=== PATIENT | female | born 1955 | race Caucasian/White ===

== ENCOUNTER 2021-05-03 13:24 | Emergency (ER) | payer MEDICARE, MEDICAID, SELFPAY ==
[2021-05-03 13:43] VITALS: BP 159/87; PULSE 85; RESP 16; TEMP 37; O2SAT 98
--- NOTE | 2021-05-03 14:04 | ED.SKABFB ---
HPI - Skin/Abscess/Foreign Bdy General Chief complaint: Skin/Abscess/Foreign Body Stated complaint: Hives Time Seen by Provider: 05/03/21 13:52 Source: patient and RN notes reviewed Mode of arrival: ambulatory Limitations: no limitations History of Present Illness HPI narrative: Patient presents today complaining of a 2-day history of a severely pruritic rash that covers her arms, legs, trunk, and now her face. Patient is unsure of the cause of the rash. The only thing different in her life is a new toothpaste and the fact that she has eaten 2 pecan sandies prior to onset of symptoms. She has eaten these cookies in the past, but it had been many years. Denies shortness of breath or difficulty swallowing. Patient has been taking Benadryl, which has been providing some relief. Patient is on dialysis 3 times per week and has history of diabetes. MD complaint: rash Related Data Home Medications Medication Instructions Recorded Confirmed amlodipine [Norvasc] 10 mg PO DAILY 05/03/21 05/03/21 atorvastatin [Lipitor] 20 mg PO HS 05/03/21 05/03/21 carvedilol [Coreg] 6.25 mg PO BID 05/03/21 05/03/21 clopidogrel [Plavix] 75 mg PO DAILY 05/03/21 05/03/21 furosemide [Lasix] 40 mg PO DAILY 05/03/21 05/03/21 insulin aspart U-100 [Novolog unit SUBCUT 05/03/21 Flexpen U-100 Insulin] insulin glargine [Basaglar KwikPen SUBCUT 05/03/21 U-100 Insulin] montelukast [Singulair] 10 mg PO DAILY 05/03/21 05/03/21 Allergies Allergy/AdvReac Type Severity Reaction Status Date / Time No Known Allergies Allergy Verified 05/03/21 13:48 Review of Systems Review of Systems: Narrative: CONSTITUTIONAL: Denies body aches, fever, chills, or sweats. EYES: Denies visual changes, redness, or discharge. ENT: Denies rhinorrhea, congestion, sore throat, or otalgia. CARDIOVASCULAR: Denies chest pain, palpitations, or edema. RESPIRATORY: Denies cough or dyspnea. GASTROINTESTINAL: Denies abdominal pain, nausea, vomiting, or diarrhea. GENITOURINARY: Denies dysuria or hematuria. SKIN: Pruritic rash MUSCULOSKELETAL: Denies back pain, joint pain, or myalgia. NEUROLOGIC: Denies headache, numbness, tingling, or weakness. PSYCH: Denies depression or anxiety. [facility] Past Medical History Medical History (Updated 05/03/21 @ 15:43 by Yamileth Eubanks, ACADEMIC AFFAIRS MANAGER, ) Diabetes Dialysis patient Social History Social History Gender identity (if verbalized by the patient): Female Comments At time of signature, I have reviewed and agree with nursing past medical, surgical, social and family history unless otherwise noted. Please see nursing chart for further information. There is no relevant family history pertinent to the presenting complaint Exam Narrative: Exam Narrative: GENERAL: Well-appearing, well-nourished, and in no acute distress. HEAD: Normocephalic, atraumatic. EYES: EOMI. No redness or drainage. Conjunctivae normal. ENT: Mucous membranes pink and moist. throat normal. Lips normal. NECK: Normal AROM. CHEST: No respiratory distress. EXTREMITIES: Normal range of motion. No edema.Dialysis access to right upper arm. SKIN: Warm, dry. Capillary refill normal. Normal skin turgor. Urticarial rash to back, chest, abdomen, bilateral legs, bilateral arms, and left cheek. Superficial petechiae to the left forearm noted, likely from patient scratching it profusely. Patient left upper eyelid is becoming swollen as well. NEURO: No focal deficits. Alert and oriented x3. Gait steady. PSYCH: Normal affect. No signs of depression or anxiety. Course Vital Signs Vital signs: Vital Signs Temperature 98.6 F 05/03/21 13:43 Pulse Rate 85 05/03/21 13:43 Respiratory Rate 16 05/03/21 13:43 Blood Pressure 159/87 H 05/03/21 13:43 Pulse Oximetry 98 05/03/21 13:43 Temperature 98.6 F 05/03/21 13:43 Pulse Rate 85 05/03/21 13:43 Respiratory Rate 16 05/03/21 13:43 Blood Pressure 159/87 H 05/03/21 13:43 Pulse Oximetry 98
== END 2021-05-03 14:08 | disposition home or self-care (01) ==
PROVIDERS: Emergency Provider Nurse Practitioner; PCP Family Medicine
DX: L50.9 Urticaria, unspecified (principal); E11.22 Type 2 diabetes mellitus with diabetic chronic kidney disease; I12.0 Hypertensive chronic kidney disease with stage 5 chronic kidney disease or end stage renal disease; N18.6 End stage renal disease; Z99.2 Dependence on renal dialysis
CPT/HCPCS: 99213; G0463

== ENCOUNTER 2024-01-30 11:06 | Inpatient (IN) | payer OTHER, SELFPAY ==
[2024-01-30] VITALS (15 sets, daily range): BP systolic 156–196; BP diastolic 55–78; PULSE 68–78; RESP 14–26; TEMP 35.7–36.7; O2SAT 95–100; BMI 28.6
--- NOTE | ~2024-01-30 | XR_ITS ---
XR chest 1V portable DATE: 02/03/2024 12:23 INDICATION: Shortness of breath TECHNIQUE: Portable AP chest on 02/03/2024 at 1218 hours COMPARISON: 01/30/2024 portable AP chest at 2203 hours FINDINGS: There is cardiomegaly. There is pulmonary vascular congestion and redistribution. There are bilateral pulmonary infiltrates which predominate centrally and in the lower lung zones. There are m ild to moderate bilateral pleural effusions. Aortic arch calcification. Diffuse osteopenia. Surgical clips overlie the right axillary area. IMPRESSION: Cardiomegaly, congestive heart failure and pulmonary edema, mild to moderate bilateral pl eural effusions Bilateral patellae central and lower lung zone infiltrates may be due to pulmonary edema, pneumonia a nd/or atelectasis Reviewed, dictated and finalized at location A. IMPRESSION: Cardiomegaly, congestive heart failure and pulmonary edema, mild to moderate bilateral pleural effusions Bilateral patellae central and lower lung zone infiltrates may be due to pulmon mckenna edema, pneumonia and/or atelectasis
--- NOTE | ~2024-01-30 | XR_ITS ---
XR chest 1V portable 02/06/2024 09:16 Indication: Dyspnea Procedure: AP portable chest Comparison: Chest dated 02/03/2024 Findings: Improving bilateral airspace disease. Cardiomegaly. Small pleural effusions. No pneumothora x. Small amount of fluid in the right fissure. Impression: 1: Improving bilateral airspace disease which may represent resolving edema or pneumonia. 2: Small pleural effusions. 3: Moderate cardiomegaly. Reviewed, dictated and finalized at location B. Impression: 1: Improving bilateral airspace disease which may represent resolving edema or pneumonia. 2: Small pleural effusions. 3: Moderate cardiomegaly.
--- NOTE | ~2024-01-30 | CT_ITS ---
EXAMINATION: CT brain wo con DATE: 01/30/2024 12:03 INDICATION: Loss of consciousness. TECHNIQUE: Computed tomography (CT) of the head was performed without intravenous contrast. Sagittal and coronal reconstructions were performed. The mA was adjusted according to patient size. Iterative reconstruction technique was employed. The dose-length product was 908.00 mGy-cm. COMPARISON: None FINDINGS: Focal region of encephalomalacia consistent with chronic infarct centered at the left basal ganglia i nvolving the lentiform nucleus, the anterior limb of the internal capsule, caudate nucleus and extend ing into the left frontal lobe najera radiata. No acute intracranial hemorrhage, acute infarction or abnormal extra axial fluid collection. Additional mild scattered white matter hypoattenuation consist ent with chronic small vessel ischemic disease. Mild ex vacuo dilation of the body of the left latera l ventricle. Ventricles are otherwise normal and symmetric. No mass/mass effect. Changes of bilateral intraocular lens replacement. The orbits and mastoid air cells are normal. Mild mucosal thickening t he right maxillary sinus. Intracranial calcified cerebral atherosclerosis is noted. IMPRESSION: 1. Encephalomalacia consistent with chronic infarct centered at the left basal ganglia. No acute intr acranial process. 2. Mild scattered white matter hypoattenuation consistent with chronic small vessel ischemic disease. Reviewed, dictated and finalized at location A. IMPRESSION: 1. Encephalomalacia consistent with chronic infarct centered at the left basal ganglia. No acute intracranial process. 2. Mild scattered white matter hypoattenuation consistent with chronic small ve ssel ischemic disease.
--- NOTE | ~2024-01-30 | CT_ITS ---
EXAMINATION: CT abdomen pelvis wo con DATE: 01/31/2024 13:48 INDICATION: Elevated creatinine. Kidney stone. TECHNIQUE: Computed tomography (CT) of the abdomen and pelvis was performed without intravenous contr ast. Automated exposure control and iterative reconstruction technique were employed. The dose-length product was 527.62 mGy-cm. COMPARISON: None. FINDINGS: The visualized portions of the lung bases demonstrate atelectasis with a dependent predomin ance. There are moderate-sized pleural effusions. Cardiomegaly is noted. There is a moderate-sized pe ricardial effusion. There are coronary artery calcifications. There is periportal edema in the liver. There is a gallstone in the gallbladder, which is normal in size. The spleen is normal. There are wi despread arterial calcifications. The pancreas and adrenal glands are normal. There is mild atrophy o f the kidneys. There are bilateral tubal ligation clips. There are no dilated loops of bowel. The sancho endix is not visualized. There are no pathologically enlarged lymph nodes. There is no free intraperi toneal fluid. Body wall edema is noted. There is severe thoracic and lumbar spondylosis. There is mil d chronic anterior wedging of multiple thoracic vertebral bodies. IMPRESSION: 1. Moderate-sized pleural effusions. 2. Moderate-sized pericardial effusion. Reviewed, dictated and finalized at location A.
--- NOTE | ~2024-01-30 | XR_ITS ---
EXAMINATION: XR chest 1V portable INDICATION: Cough and hypoxia TECHNIQUE: Portable AP chest at 2003 hours COMPARISON: None available FINDINGS: There are diffuse opacities throughout all lung zones. There are small pleural effusions. C ardiomegaly is noted. There are surgical clips of the right axilla. There is no pneumothorax. IMPRESSION: 1. Diffuse lung disease, consistent with pneumonia/or pulmonary edema. 2. Cardiomegaly. 3. Small pleural effusions. Reviewed, dictated and finalized at location F.
--- NOTE | ~2024-01-30 | US_ITS ---
EXAMINATION: US carotid duplex BI DATE: 01/30/2024 19:10 INDICATION: Transient alteration of awareness TECHNIQUE: Grayscale, color Doppler, and pulsed Doppler images of the cervical carotid arteries were obtained. The degree of vessel stenosis is placed in one of the following categories: normal, <50%, 5 0-69%, >=70% but less than near-occlusion, near-occlusion, or total occlusion. Note that percent sten osis relative to normal distal artery lumen diameter is indirectly measured from velocity measurement s as described by Babak, et al. Radiology 2003; 229:340-346. COMPARISON: None. FINDINGS: RIGHT: The right common carotid artery (CCA) peak systolic velocity (PSV) is 75 cm/s. The right internal car otid artery (ICA) PSV is 132 cm/s. The right ICA end-diastolic velocity (EDV) is 7.5 cm/s. The right ICA/CCA PSV ratio is 1.8. Grayscale and color Doppler images yield an estimate of less than 50% diame ter reduction from plaque in the ICA. The external carotid artery (ECA) PSV is 74 cm/s. There is ante grade flow in the right vertebral artery. LEFT: The left CCA PSV is 63 cm/s. The left ICA PSV is 67 cm/s. The left ICA EDV is 6.9 cm/s. The left ICA/ CCA PSV ratio is 1.1. Grayscale and color Doppler images yield an estimate of less than 50% diameter reduction from plaque in the ICA. The ECA PSV is 45 cm/s. There is antegrade flow in the left vertebr al artery. IMPRESSION: 1. 50-69% stenosis in the right internal carotid artery. 2. <50% stenosis in the left internal carotid artery. Reviewed, dictated and finalized at location F.
--- NOTE | 2024-01-30 11:11 | ECG_ITS ---
Measurements Intervals [place] Rate: 72 P: 123 PA: 222 QRS: 99 QRSD: 117 T: 159 QT: 437 QTc: 480 Interpretive Statements SINUS RHYTHM WITH FIRST DEGREE AV BLOCK CONSIDER LIMB LEAD REVERSAL INTRAVENTRICULAR CONDUCTION DELAY LOW QRS VOLTAGE IN LIMB LEADS BORDERLINE R WAVE PROGRESSION, ANTERIOR LEADS BORDERLINE ST-T WAVE ABNORMALITY- ANT/INF LEADS BASELINE WANDER- II, III, AVF BORDERLINE ECG NO PREVIOUS ECG AVAILABLE FOR COMPARISON Electronically Signed On 01-30-2024 11:14:55 CDT by Frantz Luo D.O.
[2024-01-30 11:43] LABS: Add Urine Microscopic? YES; Appearance Urine Cloudy (Clear); Color Urine Yellow (Yellow)
[2024-01-30 11:44] LABS: Bilirubin Urine Negative (Negative); Blood Urine 2+ (Negative); Glucose Urine UA Negative (Negative); Ketones Urine Negative (Negative); Leukocyte Esterase Ur 3+ LEU/UL (Negative); Nitrate Urine Negative (Negative); Protein Urine 3+ mg/dL (Negative); Specific Grav Ur 1.015 (1.001-1.035); Urobilinogen Urine 0.2 mg/dL (<2.0); pH Urine 8.5 (5.0-9.0)
[2024-01-30 11:48] LABS: Alveolar/Arterial O2 Gradient 57.4 mmHg; Base Excess ABG 2.8 mEq/l (+/-2.0); Fractional Inspired Oxygen 26 %; HCO3 ABG 27.1 mEq/l (22.0-26.0); Oxygen Content ABG 15.8 %vol (16.0-22.0); Oxygen Saturation ABG 96.2 % (95.0-100.0); PCO2 ABG 40.4 mmHg (35.0-45.0); PO2 ABG 80.1 mmHg (80.0-100.0); PO2 FiO2 Ratio Arterial Blood 3.08 %; Total Hemoglobin 11.9 g/dL (12.0-18.0); pH ABG 7.444 (7.350-7.450)
[2024-01-30 11:50] LABS: Bacteria Urine 4+ /hpf; Need Manual Microscopic Reviewed; Non Pathogenic Casts 0-2; RBC Urine 21-50 /hpf (0-2); Squamous Epithelial Cell Urine Few /hpf (Few); WBC Urine >100 /hpf (0-3)
[2024-01-30 11:51] LABS: Device NASAL CANNULA; Modified Allen's Test Pass; Site Drawn LEFT RADIAL
[2024-01-30 11:52] LABS: Liters per Minute 1.5 LPM
[2024-01-30 12:00] LABS: Basophils Absolute Auto 0.1 K/mm3 (0.0-0.1); Basophils Percent Auto 0.8 % (0.2-1.2); Eosinophils Absolute Auto 0.4 K/mm3 (0-0.3); Eosinophils Percent Auto 3.3 % (0-4.4); Hematocrit 33.3 % (37.0-47.0); Hemoglobin 10.8 g/dL (12.0-15.0); Immature Granulocyte Absolute 0.04 K/mm3 (0.00-0.031); Immature Granulocyte Percent A 0.4 % (0-0.5); Lymphocytes Absolute Auto 1.45 K/mm3 (0.9-3.2); Lymphocytes Percent Auto 13.2 % (18.3-44.2); Mean Corpuscular HGB Conc 32.4 g/dl (32-36); Mean Corpuscular Hemoglobin 27.5 pg (26-34); Mean Corpuscular Volume 84.7 fl (80-100); Mean Platelet Volume 10.1 fl (7.4-10.4); Monocytes Absolute Auto 0.7 K/mm3 (0.1-0.6); Monocytes Percent Auto 6.5 % (2.6-8.5); Neutrophils Absolute Auto 8.4 K/mm3 (1.3-6.7); Neutrophils Percent Auto 75.8 % (45.5-73.1); Platelet Count Result 163 k/mm3 (150-375); Red Blood Count 3.93 M/mm3 (4.2-5.4); Red Cell Distribution Width 19.8 % (11.5-14.5)
[2024-01-30 12:09] LABS: INR 1.1; Prothrombin Time 14.3 Seconds (11.1-14.7)
[2024-01-30 12:10] LABS: Partial Thromboplastin Time 30.3 Seconds (22.3-36.8)
[2024-01-30 12:11] LABS: Alanine Aminotransferase 12 U/L (6-35); Albumin Level 3.8 g/dL (3.5-5.1); Alkaline Phosphatase 107 U/L (38-126); Anion Gap 4 mmol/L (4-12); Aspartate Amino Transferase 23 U/L (14-36); Bilirubin,Total 1.2 mg/dL (0.2-1.3); Blood Urea Nitrogen 12 mg/dL (7-17); Calcium 9.9 mg/dL (8.4-10.2); Carbon Dioxide 31 mmol/L (22-30); Chloride 99 mmol/L (98-107); Estimated CRCL calculation 11 ml/min; Estimated Glomerular Filt Rate 9; Glucose 183 mg/dL (65-110); Potassium 3.8 mmol/L (3.4-5.0); Sodium 134 mmol/L (137-145)
--- NOTE | 2024-01-30 12:27 | PC.NURSE ---
Pt contacts called per request from physician, no answer, LVM with both contacts
--- NOTE | 2024-01-30 13:36 | PM.IMHP ---
H&P: HPI History of Present Illness Date/Time: 01/30/24 14:00 Chief Complaint: Dizziness, nausea, syncope. Narrative: This is a pleasant 68-year-old female with history of stroke, end-stage renal disease on hemodialysis, hypertension, hyperlipidemia, and insulin-dependent diabetes who presented to the emergency department via EMS for home for evaluation of dizziness, nausea, and syncope. EMS was summoned via the patient's Life Alert at which time she reported dizziness and nausea. EMS reports that she was alert and oriented x4 on their arrival but became increasingly lethargic en route to the hospital and reportedly had multiple yet brief syncopal episodes during transport. Her pupils were pinpoint but reactive in the administered 2 mg of Narcan without change. She was afebrile on arrival to the ED with stable vitals. Blood pressures have ranged between the 150s to 180s systolic. Labs were significant for WBC count of 11.0, hemoglobin 10.8, sodium 134, potassium 3.8, creatinine 4.60, glucose 183. Urine was positive for 3+ leukocyte esterase, >100 WBC, and 4+ bacteria. Brain CT showed chronic findings without acute intracranial process. She is being admitted in this setting for further workup. At the time my evaluation she is resting comfortably. She urinates once or twice a day and does endorse dysuria. She also reports a productive cough, sweats, and nausea but no vomiting. She denies fever, sore throat, chest and pleuritic pain, sensations of racing heart, hematemesis, diarrhea, melena, and hematochezia. Review of Systems Review of Systems: Twelve systems were reviewed and are negative except for as per HPI. [facility] Past Medical History Medical History (Updated 01/30/24 @ 21:56 by Francia Bates PA-C) Cerebrovascular accident Diabetic retinopathy End-stage renal disease on hemodialysis Patient of Dr. Huntley. Dialysis days MWF. Hyperlipidemia Hypertension Insulin dependent type 2 diabetes mellitus Seasonal allergies Urinary incontinence Surgical History Surgical History (Updated 01/30/24 @ 21:56 by Francia Bates PA-C) History of amputation of toe History of angioplasty History of tubal ligation History of wisdom tooth extraction Family History Family History Father Diabetes mellitus Parkinson disease Social History Social History Social History: Surrogate medical decision maker: Smith Hutchinson, son. Code status: Full code. Smoking status: Never smoker Alcohol intake: never Substance use: never Do You Feel Safe in your Home?: Yes Lack of Transportation: No Lack of Food: Never True Current Housing: I Have Housing Concerned About Future Housing: No Difficulty Paying Gas/Electric Bills: No Difficulty Paying for Meds: No Currently Unemployed: No Education: Decline to Answer Difficulty w/ Childcare or Family Care: No Additional living arrangements comments: Lives alone in an apartment in [place]. Spiritual care concerns: No Meds Home Medications and Allergies Home Medications Medication Instructions Recorded Confirmed Type amlodipine 10 mg tablet (Norvasc) 10 mg PO DAILY 05/03/21 01/30/24 History atorvastatin 20 mg tablet (Lipitor) 20 mg PO HS 05/03/21 01/30/24 History clopidogrel 75 mg tablet (Plavix) 75 mg PO DAILY 05/03/21 01/30/24 History insulin aspart U-100 100 unit/mL unit subcut 05/03/21 History (3 mL) subcutaneous pen (Novolog FlexPen U-100 Insulin aspart) insulin glargine 100 unit/mL (3 subcut 05/03/21 History mL) subcutaneous pen (Basaglar KwikPen U-100 Insulin) montelukast 10 mg tablet 10 mg PO DAILY 05/03/21 01/30/24 History (Singulair) carvedilol 25 mg tablet 25 mg PO BID 01/30/24 01/30/24 History linagliptin 5 mg tablet (Tradjenta) 5 mg PO DAILY 01/30/24 01/30/24 History losartan 100 mg tablet 100 mg PO GRACIA
--- NOTE | 2024-01-30 14:53 | ED.AMS ---
HPI - Altered Mental Status General Chief Complaint: Altered Mental Status Stated Complaint: AMS Time Seen by Provider: 01/30/24 11:20 Source: EMS Mode of arrival: EMS Limitations: altered mental status History of Present Illness HPI narrative: 68-year-old with a history of a hypertension, ESRD on hemodialysis Monday was brought in from home with altered mental status. Patient was found to be tender at home. She was given IV Narcan on route to the hospital with no significant change. MD complaint: altered mental status Severity: severe Related Data Home Medications Medication Instructions Recorded Confirmed amlodipine 10 mg tablet (Norvasc) 10 mg PO DAILY 05/03/21 05/03/21 atorvastatin 20 mg tablet (Lipitor) 20 mg PO HS 05/03/21 05/03/21 clopidogrel 75 mg tablet (Plavix) 75 mg PO DAILY 05/03/21 05/03/21 insulin aspart U-100 100 unit/mL unit subcut 05/03/21 (3 mL) subcutaneous pen (Novolog FlexPen U-100 Insulin aspart) insulin glargine 100 unit/mL (3 subcut 05/03/21 mL) subcutaneous pen (Basaglar KwikPen U-100 Insulin) montelukast 10 mg tablet 10 mg PO DAILY 05/03/21 05/03/21 (Singulair) carvedilol 25 mg tablet 25 mg BID 01/30/24 doxycycline monohydrate 100 mg 100 mg 01/30/24 capsule linagliptin 5 mg tablet (Tradjenta) 5 mg 01/30/24 losartan 100 mg tablet 100 mg 01/30/24 01/30/24 nifedipine 90 mg tablet,extended 90 mg PO 01/30/24 release 24 hr Allergies Allergy/AdvReac Type Severity Reaction Status Date / Time No Known Allergies Allergy Verified 01/31/23 15:46 Review of Systems Review of Systems: ROS unobtainable: Yes unobtainable due to medical condition PMFSH Past Medical History Medical History (Updated 01/30/24 @ 14:54 by Gaurav Hunt MD) Cerebrovascular accident End-stage renal disease on hemodialysis Patient of Dr. Huntley. Dialysis days MWF. Hyperlipidemia Hypertension Insulin dependent type 2 diabetes mellitus Seasonal allergies Urinary incontinence Surgical History Surgical History History of angioplasty History of tubal ligation History of wisdom tooth extraction Family History Family History Father Diabetes mellitus Social History Social History Social History: Surrogate medical decision maker: Smith Hutchinson, he. Code status: Full code. Smoking status: Never smoker Alcohol intake: never Substance use: never Lack of Transportation: YES Lack of Food: Never True Current Housing: I Have Housing Concerned About Future Housing: No Difficulty Paying Gas/Electric Bills: No Difficulty Paying for Meds: No Currently Unemployed: No Education: High School Diploma/GED Additional living arrangements comments: Lives alone in an apartment in [place]. Exam Narrative: GENERAL: Obtunded , well-nourished, and in no acute distress. HEAD: Normocephalic, atraumatic. EYES: PERRLA and EOMI. ENT: Nares clear, no rhinorrhea or epistaxis. Mucous membranes moist. drooling NECK: Supple. CHEST: Clear to auscultation. No respiratory distress. HEART: Regular rate and rhythm. No murmur heard. Normal peripheral pulses. ABDOMEN: Soft, nontender, nondistended, normal active bowel sounds. EXTREMITIES: Normal range of motion. No edema. SKIN: Warm, dry, no rash. NEURO: No focal deficits. semi responsive wakes up with sternal rub . Course Course Emergency Course: Patient upon arrival to the ER was semi-responsive opens eyes with deep sternal rib her workup was essentially negative. She is not on any narcotics. I did discuss with her son Smith was out of state she has no underlying history of dementia. She states by herself with the help of her caregiver. Discussed with hospitalist will admit Reevaluation(s) Reevaluation #1: Patient is now alert he has
--- NOTE | 2024-01-30 15:33 | PC.NURSE ---
Meal ordered for patient
[2024-01-30 16:45] LABS: Glucose Point of Care 198 mg/dl (65-105)
--- NOTE | 2024-01-30 16:48 | PC.NURSE ---
This patient, Lesly Hutchinson, was admitted to [facility] Surg Room 321-01 at 16:24. Patient/family oriented to hospital policies and general routines including ID bracelet, bed and alarms, visiting hours, pain management, procedures, bathroom and other care routines, personal items, smoking policy, room service/diet, and visiting hours. Information on how to activate the Rapid Response Team has been discussed. Patient/Family are encouraged to report perceived risks to care and to ask questions if they do not understand what they are told or what they should do.
[2024-01-30] MEDS: HEPARIN SODIUM 5,000 UNITS/ML VIAL 5000 UNITS SUB-Q (20:52)
[2024-01-30 21:03] LABS: Glucose Point of Care 167 mg/dl (65-105)
--- NOTE | 2024-01-30 23:45 | ECG_ITS ---
Measurements Intervals [place] Rate: 76 P: 63 MA: 227 QRS: 128 QRSD: 113 T: 43 QT: 416 QTc: 469 Interpretive Statements SINUS RHYTHM WITH FIRST DEGREE AV BLOCK VENTRICULAR PREMATURE COMPLEXES RIGHT AXIS DEVIATION INTRAVENTRICULAR CONDUCTION DELAY PATTERN CONSISTENT WITH PULMONARY DISEASE BORDERLINE T WAVE ABNORMALITY- ANT/INF LEADS BASELINE WANDER- I, II, AVF, V1, V4-V6 BORDERLINE ECG COMPARED TO ECG 01/30/2024 11:12:36 NO SIGNIFICANT CHANGES Electronically Signed On 01-31-2024 6:39:01 CDT by Frantz Luo D.O.
[2024-01-30 23:55] LABS: Glucose Point of Care 159 mg/dl (65-105)
[2024-01-31] VITALS (25 sets, daily range): BP systolic 136–184; BP diastolic 52–87; PULSE 62–77; RESP 14–20; TEMP 36.1–37.1; O2SAT 93–95
[2024-01-31 03:59] LABS: Troponin I 0.026 ng/mL (0.000-0.034)
[2024-01-31 07:30] LABS: Basophils Absolute Auto 0.1 K/mm3 (0.0-0.1); Basophils Percent Auto 1.1 % (0.2-1.2); Eosinophils Absolute Auto 0.2 K/mm3 (0-0.3); Eosinophils Percent Auto 3.4 % (0-4.4); Hemoglobin 10.6 g/dL (12.0-15.0); Immature Granulocyte Absolute 0.02 K/mm3 (0.00-0.031); Immature Granulocyte Percent A 0.3 % (0-0.5); Lymphocytes Absolute Auto 1.32 K/mm3 (0.9-3.2); Lymphocytes Percent Auto 20.5 % (18.3-44.2); Mean Corpuscular HGB Conc 32.1 g/dl (32-36); Mean Corpuscular Hemoglobin 27.5 pg (26-34); Mean Corpuscular Volume 85.5 fl (80-100); Mean Platelet Volume 10.2 fl (7.4-10.4); Monocytes Absolute Auto 0.5 K/mm3 (0.1-0.6); Monocytes Percent Auto 8.4 % (2.6-8.5); Neutrophils Absolute Auto 4.3 K/mm3 (1.3-6.7); Neutrophils Percent Auto 66.3 % (45.5-73.1); Platelet Count Result 162 k/mm3 (150-375); Red Blood Count 3.86 M/mm3 (4.2-5.4); Red Cell Distribution Width 19.9 % (11.5-14.5); White Blood Count 6.5 K/mm3 (4.5-10.0)
[2024-01-31 07:45] LABS: Alanine Aminotransferase 13 U/L (6-35); Albumin Level 3.7 g/dL (3.5-5.1); Alkaline Phosphatase 93 U/L (38-126); Anion Gap 5 mmol/L (4-12); Aspartate Amino Transferase 22 U/L (14-36); Blood Urea Nitrogen 16 mg/dL (7-17); Calcium 10.1 mg/dL (8.4-10.2); Carbon Dioxide 30 mmol/L (22-30); Chloride 99 mmol/L (98-107); Estimated CRCL calculation 10 ml/min; Estimated Glomerular Filt Rate 8; Glucose 117 mg/dL (65-110); Magnesium 1.9 mg/dL (1.6-2.3); Phosphorus 3.3 mg/dL (2.5-4.5); Potassium 3.8 mmol/L (3.4-5.0); Sodium 134 mmol/L (137-145)
[2024-01-31 07:52] LABS: Troponin I 0.028 ng/mL (0.000-0.034)
[2024-01-31 08:05] LABS: Glucose Point of Care 111 mg/dl (65-105)
[2024-01-31 08:34] LABS: Hepatitis B Surface Antigen Negative (Negative)
[2024-01-31] MEDS: SODIUM CHLORIDE 0.9% IV 1,000 ML 999 ML IV CONT (08:51)
[2024-01-31] MEDS: HEPARIN SODIUM 1,000 UNITS/ML VIAL 5000 UNITS (08:51)
[2024-01-31 09:13] LABS: Hepatitis B Surface Anti Res Indeterminate
--- NOTE | 2024-01-31 09:22 | P.PNIM_ITS ---
Progress Note: A&P Assessment and Plan (1) Syncope: Code(s): R55 - Syncope and collapse Status: Acute Assessment and Plan: 01/31/2024: * EMS report presyncopal episodes in route to the hospital * Patient was given 2 mg of Narcan without any change EN route * Head CT was negative for any acute intracranial process, showed age-related changes, shown encephalomalacia consistent with chronic infarct centered at th e left basal ganglia * Carotid Dopplers showed 50-69% stenosis in the right internal carotid artery less than 50% stenosis in the left internal carotid artery. * Continue orthostatic blood pressures Q shift * Continue cardiac monitoring * Will obtain an echocardiogram today (2) Urinary tract infection: Code(s): N39.0 - Urinary tract infection, site not specified Status: Acute Assessment and Plan: 01/31/2024: * UA showing 3+ urine protein, 2+ urine blood, 3+ leukocytes 21-50, urine RBCs, greater than 100 urine WBCs, 4+ urine bacteria * Urine culture obtained and pending * Blood cultures ordered * Continue Rocephin * Patient has history incontinence (3) End-stage renal disease on hemodialysis: Code(s): N18.6 - End stage renal disease; Z99.2 - Dependence on renal dialysis Status: Acute Assessment and Plan: 01/31/2024: * Creatinine 5.20 this morning * Nephrology consulted for HD * HD today (4) Insulin dependent type 2 diabetes mellitus: Code(s): E11.9 - Type 2 diabetes mellitus without complications; Z79.4 - half-way (current) use of insulin Status: Chronic Assessment and Plan: 01/31/2024: * Blood sugars ranging 111-117 * Will obtain a hemoglobin A1c * Accu-Cheks AC and HS * Hypoglycemic in place * Moderate dose sliding scale insulin ordered * Will hold linagliptin (5) Hypertension: Code(s): I10 - Essential (primary) hypertension Status: Chronic Assessment and Plan: 01/31/2024: * Blood pressure ranging 160/80-192/70 * Continue amlodipine and losartan (6) Hyperlipidemia: Code(s): E78.5 - Hyperlipidemia, unspecified Status: Chronic Assessment and Plan: 01/31/2024: * Continue atorvastatin and Plavix Time Spent With Patient Time with patient: Greater than 35 minutes Subjective Date/time seen: 01/31/24 09:22 Interval history: This is a 68 year female significant past medical history of CVA, diabetic retinopathy end-stage renal disease on hemodialysis, hyperlipidemia, hypertension, type 2 diabetes who presented to the [facility] with complaints of dizziness, nausea, syncope. Workup in the hospital included head CT which was negative for any acute intracranial process, showed age-related changes, encephalomalacia consistent with chronic infarct centered at the left basal ganglia. Carotid doppler study revealed 50-69% stenosis in the right internal carotid artery, and less than 50% stenosis in the left internal carotid artery. Chest x-ray showing diffuse lung disease consistent with pneumonia and/or pulmonary edema small pleural effusions. EKG showing sinus rhythm with first- degree AV block, right axis deviation, with a rate of 76, QTC 469. Initial labs show a white blood cell count of 11.0 hemoglobin 10.8, sodium 134, creatinine 4.6, EGFR 9, liver enzymes are normal. UA was obtained showing 3+ urine protein, 2+ urine blood, 3+ leukocytes, greater than 100 urine wbc's, 21-50 urine RBCs +bacteria. Urine culture was obtained and is pending. Patient given IVF and Rocephin the ER. Nephrology was consulted. Examination today patient is alert and oriented x3, lying in the be
--- NOTE | 2024-01-31 09:22 | PM.IMPN ---
Progress Note: A&P Assessment and Plan (1) Syncope: Code(s): R55 - Syncope and collapse Status: Acute Assessment and Plan: 01/31/2024: EMS report presyncopal episodes in route to the hospital Patient was given 2 mg of Narcan without any change EN route Head CT was negative for any acute intracranial process, showed age-related changes, shown encephalomalacia consistent with 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 Continue orthostatic blood pressures Q shift Continue cardiac monitoring Will obtain an echocardiogram today (2) Urinary tract infection: Code(s): N39.0 - Urinary tract infection, site not specified Status: Acute Assessment and Plan: 01/31/2024: UA showing 3+ urine protein, 2+ urine blood, 3+ leukocytes 21-50, urine RBCs, greater than 100 urine WBCs, 4+ urine bacteria Urine culture obtained and pending Blood cultures ordered Continue Rocephin Patient has history incontinence (3) End-stage renal disease on hemodialysis: Code(s): N18.6 - End stage renal disease; Z99.2 - Dependence on renal dialysis Status: Acute Assessment and Plan: 01/31/2024: Creatinine 5.20 this morning Nephrology consulted for HD HD today (4) Insulin dependent type 2 diabetes mellitus: Code(s): E11.9 - Type 2 diabetes mellitus without complications; Z79.4 - [facility] (current) use of insulin Status: Chronic Assessment and Plan: 01/31/2024: Blood sugars ranging 111-117 Will obtain a hemoglobin A1c Accu-Cheks AC and HS Hypoglycemic in place Moderate dose sliding scale insulin ordered Will hold linagliptin (5) Hypertension: Code(s): I10 - Essential (primary) hypertension Status: Chronic Assessment and Plan: 01/31/2024: Blood pressure ranging 160/80-192/70 Continue amlodipine and losartan (6) Hyperlipidemia: Code(s): E78.5 - Hyperlipidemia, unspecified Status: Chronic Assessment and Plan: 01/31/2024: Continue atorvastatin and Plavix Time Spent With Patient Time with patient: Greater than 35 minutes Subjective Date/time seen: 01/31/24 09:22 Interval history: This is a 68 year female significant past medical history of CVA, diabetic retinopathy end-stage renal disease on hemodialysis, hyperlipidemia, hypertension, type 2 diabetes who presented to the [facility] with complaints of dizziness, nausea, syncope. Workup in the hospital included head CT which was negative for any acute intracranial process, showed age-related changes, encephalomalacia consistent with chronic infarct centered at the left basal ganglia. Carotid doppler study revealed 50-69% stenosis in the right internal carotid artery, and less than 50% stenosis in the left internal carotid artery. Chest x-ray showing diffuse lung disease consistent with pneumonia and/or pulmonary edema small pleural effusions. EKG showing sinus rhythm with first-degree AV block, right axis deviation, with a rate of 76, QTC 469. Initial labs show a white blood cell count of 11.0 hemoglobin 10.8, sodium 134, creatinine 4.6, EGFR 9, liver enzymes are normal. UA was obtained showing 3+ urine protein, 2+ urine blood, 3+ leukocytes, greater than 100 urine wbc's, 21-50 urine RBCs +bacteria. Urine culture was obtained and is pending. Patient given IVF and Rocephin the ER. Nephrology was consulted. Examination today patient is alert and oriented x3, lying in the bed. She denies any fever, chills, nausea, vomiting, diarrhea, abdominal pain, chest pain, or shortness of breath. Labs today reveal normal white blood cell count 6.5, hemoglobin 10.6, sodium 134, creatinine increased 2.2, liver enzymes are normal, x2 remain flat TSH 1.3 hepatitis B negative. She had HD today. She reported dizziness and lightheadedness right after her HD was finished,
--- NOTE | 2024-01-31 12:10 | PM.CNNEP ---
Assessment and Plan Assessment and plan (1) End stage renal disease: Code(s): N18.6 - End stage renal disease Status: Chronic Assessment and Plan: HD today continue M/W/F dialysis schedule while hospitalized follow electrolytes, volume status, and clearance (2) Syncope: Code(s): R55 - Syncope and collapse Status: Acute Assessment and Plan: as noted by EMS report in route to the hospital evaluation to date noted: Head CT was negative for any acute intracranial process carotid dopplers showed 50-69% stenosis in the right internal carotid artery less than 50% stenosis in the left internal carotid artery. follow orthostatics telemetry monitoring check Echo is not done recently (3) Altered mental status: Qualifiers: Altered mental status type: unspecified Qualified Code(s): R41.82 - Altered mental status, unspecified Code(s): R41.82 - Altered mental status, unspecified Status: Acute Assessment and Plan: appears resolved at this time presumably secondary to #2 and #3 follow mentation (4) Acute UTI: Code(s): N39.0 - Urinary tract infection, site not specified Status: Acute Assessment and Plan: suggestive by admission UA follow culture results on antibiotics (5) Hypertension: Code(s): I10 - Essential (primary) hypertension Status: Chronic Assessment and Plan: elevated on admission doing better at this time follow trend of hemodynamics (6) Anemia: Code(s): D64.9 - Anemia, unspecified Status: Acute Assessment and Plan: due to ESRD H/H at goal Epogen with HD follow trend of H/H (7) Insulin dependent type 2 diabetes mellitus: Code(s): E11.9 - Type 2 diabetes mellitus without complications; Z79.4 - [facility] ([facility] use of [facility] Status: Chronic Assessment and Plan: follow accu-cheks glycemic control per hospitalists I will continue follow patient with you while she remains hospitalized and make further recommendations as deemed necessary. Thank you for allowing me to participate in the care of this patient. History of Present Illness Reason for Consult Consult date: 01/31/24 Reason for consult: end stage renal disease Chief Complaint Chief complaint: altered mental status History of Present Illness Narrative: The patient is a 68-year-old female with a past medical history as outlined below who presented to [facility] Emergency room for further evaluation of altered mental status and syncope. EMS was summoned to the patient's home via the patient's Life Alert due to complaints of nausea and dizziness. Per EMS report, on their arrival the patient was alert oriented x4 but she slowly and increasingly became lethargic in route to the hospital. Reportedly, she had multiple but brief syncopal episodes during the transport. Her pupils were apparently pinpoint during some of these episodes but were reactive but she was given Narcan without any significant change or improvement. By the time of her arrival to the emergency room, she was hemodynamically stable without any evidence of hypotension as her blood pressure was running in the 150-180 systolic range. Routine blood test demonstrated a mildly elevated white blood cell count with noted anemia likely related to her ESRD status with a chemistry that also was significant for her known history dialysis dependence. Her urinalysis was highly suggestive of urinary tract infection with 3+ leukocyte esterase, greater than 100 white blood cells, and 4+ bacteria. A CT scan of the brain demonstrated chronic findings without any acute intracranial process. Her mentation seemed to improve while she was in the emergency room as well. Given her constellation of symptoms as well as her laboratory findings, she was admitted the hospital for further evaluation and therapy. Since her admis
--- NOTE | 2024-01-31 12:10 | P.CONNP_ITS ---
Assessment and Plan Assessment and plan (1) End stage renal disease: Code(s): N18.6 - End stage renal disease Status: Chronic Assessment and Plan: * HD today * continue M/W/F dialysis schedule while hospitalized * follow electrolytes, volume status, and clearance (2) Syncope: Code(s): R55 - Syncope and collapse Status: Acute Assessment and Plan: * as noted by EMS report in route to the hospital * evaluation to date noted: * Head CT was negative for any acute intracranial process * carotid dopplers showed 50-69% stenosis in the right internal carotid artery less than 50% stenosis in the left internal carotid artery. * follow orthostatics * telemetry monitoring * check Echo is not done recently (3) Altered mental status: Qualifiers: Altered mental status type: unspecified Qualified Code(s): R41.82 - Altered mental status, unspecified Code(s): R41.82 - Altered mental status, unspecified Status: Acute Assessment and Plan: * appears resolved at this time * presumably secondary to #2 and #3 * follow mentation (4) Acute UTI: Code(s): N39.0 - Urinary tract infection, site not specified Status: Acute Assessment and Plan: * suggestive by admission UA * follow culture results * on antibiotics (5) Hypertension: Code(s): I10 - Essential (primary) hypertension Status: Chronic Assessment and Plan: * elevated on admission * doing better at this time * follow trend of hemodynamics (6) Anemia: Code(s): D64.9 - Anemia, unspecified Status: Acute Assessment and Plan: * due to ESRD * H/H at goal * Epogen with HD * follow trend of H/H (7) Insulin dependent type 2 diabetes mellitus: Code(s): E11.9 - Type 2 diabetes mellitus without complications; Z79.4 - [facility] (current) use of insulin Status: Chronic Assessment and Plan: * follow accu-cheks * glycemic control per hospitalists I will continue follow patient with you while she remains hospitalized and make further recommendations as deemed necessary. Thank you for allowing me to participate in the care of this patient. History of Present Illness Reason for Consult Consult date: 01/31/24 Reason for consult: end stage renal disease Chief Complaint Chief complaint: altered mental status History of Present Illness Narrative: The patient is a 68-year-old female with a past medical history as outlined below who presented to [facility] Emergency room for further evaluation of altered mental status and syncope. EMS was summoned to the patient's home via the patient's Life Alert due to complaints of nausea and dizziness. Per EMS report, on their arrival the patient was alert oriented x4 but she slowly and increasingly became lethargic in route to the hospital. Reportedly, she had multiple but brief syncopal episodes during the transport. Her pupils were apparently pinpoint during some of these episodes but were reactive but she was given Narcan without any significant change or improvement. By the time of her arrival to the emergency room, she was hemodynamically stable without any evidence of hypotension as her blood pressure was running in the 150-180 systolic range. Routine blood test demonstrated a mildly elevated white blood cell count with noted anemia likely related to her ESRD status with a chemistry that also was significant for her known history dialysis dependence. Her urinalysis was highly sugg
[2024-01-31] MEDS: EPOETIN ALFA-EPBX 4,000 UNITS/ML VIAL 4000 UNITS IV PUSH (12:34)
[2024-01-31 13:08] LABS: Glucose Point of Care 100 mg/dl (65-105)
[2024-01-31] MEDS: carvediloL 25 MG TABLET PO ×2 (13:15→21:17)
[2024-01-31] MEDS: MONTELUKAST SODIUM 10 MG TABLET PO (13:15)
[2024-01-31] MEDS: CLOPIDOGREL BISULFATE 75 MG TABLET PO (13:15)
[2024-01-31] MEDS: LOSARTAN POTASSIUM 100 MG TABLET PO (13:15)
[2024-01-31] MEDS: amLODIPine BESYLATE 5 MG TABLET 10 MG PO (13:15)
[2024-01-31 16:52] LABS: Glucose Point of Care 137 mg/dl (65-105)
--- NOTE | 2024-01-31 17:02 | ECHO_ITS ---
Patient Info Name: Lesly Hutchinson Age: 68 years : 1955 Gender: Female Ht: 66 in Wt: 177 lbs BSA: 1.95 m2 HR: 78 bpm BP: 184 / 60 mmHg Technical Quality: Fair Exam Date: 01/31/2024 4:05 PM Exam Location: Echo Lab Exam Room: 321 Patient Status: Inpatient Admit Date: 01/31/2024 Staff Ordering Physician: Francia Bates PA-C Patient Portal Concierge: Winnie Sanchez RDCS Attending Provider: Gerard Poole MD Referring Physician: Paulo FINN; Exam Type: CA echo doppler color flow Study Info Indications - syncope Complete two-dimensional, color flow and Doppler transthoracic echocardiogram is performed. Summary 1. Complete two-dimensional, color flow and Doppler transthoracic echocardiogram is performed. 2. Left ventricular chamber dimension is mildly enlarged. 3. Left ventricular systolic function is normal, estimated at 55-60%. 4. There is mild concentric increased left ventricular wall thickness. 5. The left ventricular diastolic function is abnormal. 6. E/e' 25 is significantly elevated. 7. Left atrial chamber dimension is severely enlarged. 8. The mitral valve has moderately calcified annulus. 9. There is mild mitral valve regurgitation. 10. There is mild tricuspid valve regurgitation. 11. Mild pulmonary hypertension, estimated pulmonary arterial systolic pressure is 42 mmHg. 12. There is trace pulmonic regurgitation. 13. There is small circumferential pericardial effusion, most of which is posteriorly located at 1.7 cm. 14. No cardiac tamponade. Left Ventricle E/e' 25 is significantly elevated. Left ventricular chamber dimension is mildly enlarged. Left ventricular systolic function is normal, estimated at 55-60%. There is mild concentric increased left ventricular wall thickness. The left ventricular diastolic function is abnormal. Right Ventricle Right ventricular systolic function is normal and with normal TAPSE 1.7 cm. Right ventricular chamber dimension is normal. Left Atria Left atrial chamber dimension is severely enlarged. Right Atria Right atrial chamber dimension is normal. Aortic Valve The aortic valve is trileaflet. There is no aortic valve stenosis. There is no aortic valve regurgitation. Pulmonic Valve There is trace pulmonic regurgitation. Mitral Valve The mitral valve has moderately calcified annulus. There is no mitral valve stenosis. There is mild mitral valve regurgitation. Tricuspid Valve There is mild tricuspid valve regurgitation. Mild pulmonary hypertension, estimated pulmonary arterial systolic pressure is 42 mmHg. Pericardium/Pleural There is small circumferential pericardial effusion, most of which is posteriorly located at 1.7 cm. No cardiac tamponade. Inferior Vena Cava Normal inferior vena cava with >50% collapse upon inspiration consistent with normal right atrial pressure, 5 mmHg. Aorta The aortic root size at the sinus of Valsalva is normal. Left Ventricular Outflow Tract Name Value Normal LVOT 2D LVOT Diameter 2.0 cm LVOT Doppler LVOT Peak Gradient 8 mmHg LVOT Mean Gradient 5 mmHg LVOT VTI 35 cm LVOT VTI/AV VTI Ratio
[2024-01-31 18:07] LABS: Glucose Point of Care 165 mg/dl (65-105)
[2024-01-31 20:15] LABS: Glucose Point of Care 140 mg/dl (65-105)
[2024-01-31] MEDS: ATORVASTATIN 20 MG TABLET PO (21:17)
[2024-01-31] MEDS: HEPARIN SODIUM 5,000 UNITS/ML VIAL 5000 UNITS SUB-Q (21:17)
[2024-02-01] VITALS (13 sets, daily range): BP systolic 140–194; BP diastolic 53–74; PULSE 55–75; RESP 12–22; TEMP 35.9–36.5; O2SAT 92–96
[2024-02-01 00:20] LABS: Glucose Point of Care 132 mg/dl (65-105)
[2024-02-01] MEDS: ONDANSETRON INJ 4 MG/2 ML VIAL IV PUSH (00:46)
[2024-02-01 08:35] LABS: Glucose Point of Care 135 mg/dl (65-105)
[2024-02-01] MEDS: HEPARIN SODIUM 5,000 UNITS/ML VIAL 5000 UNITS SUB-Q ×2 (08:49→20:29)
[2024-02-01] MEDS: MONTELUKAST SODIUM 10 MG TABLET PO (08:50)
[2024-02-01] MEDS: CLOPIDOGREL BISULFATE 75 MG TABLET PO (08:50)
[2024-02-01] MEDS: amLODIPine BESYLATE 5 MG TABLET 10 MG PO (08:50)
[2024-02-01] MEDS: LOSARTAN POTASSIUM 100 MG TABLET PO (08:56)
[2024-02-01] MEDS: carvediloL 25 MG TABLET PO ×2 (08:56→20:29)
--- NOTE | 2024-02-01 09:07 | PM.IMPN ---
Progress Note: A&P Assessment and Plan (1) Anemia: Code(s): D64.9 - Anemia, unspecified Status: Acute (2) End stage renal disease: Code(s): N18.6 - End stage renal disease Status: Chronic (3) Altered mental status: Qualifiers: Altered mental status type: unspecified Qualified Code(s): R41.82 - Altered mental status, unspecified Code(s): R41.82 - Altered mental status, unspecified Status: Acute (4) Acute UTI: Code(s): N39.0 - Urinary tract infection, site not specified Status: Acute (5) Syncope: Code(s): R55 - Syncope and collapse Status: Acute (6) End-stage renal disease on hemodialysis: Code(s): N18.6 - End stage renal disease; Z99.2 - Dependence on renal dialysis Status: Acute (7) Insulin dependent type 2 diabetes mellitus: Code(s): E11.9 - Type 2 diabetes mellitus without complications; Z79.4 - [facility] (current) use of insulin Status: Chronic Plan (1) Syncope: ?Code(s): R55 - Syncope and collapse ?Status:?Acute ?Assessment and Plan: 01/31/2024: EMS report presyncopal episodes in route to the hospital Patient was given 2 mg of Narcan without any change EN route Head CT was negative for any acute intracranial process, showed age-related changes, shown encephalomalacia consistent with 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 Continue orthostatic blood pressures Q shift Continue cardiac monitoring echocardiogram ? 1. Complete two-dimensional, color flow and Doppler transthoracic echocardiogram is performed. ? 2. Left ventricular chamber dimension is mildly enlarged. ? 3. Left ventricular systolic function is normal, estimated at 55-60%. ? 4. There is mild concentric increased left ventricular wall thickness. ? 5. The left ventricular diastolic function is abnormal. ? 6. E/e' 25 is significantly elevated. ? 7. Left atrial chamber dimension is severely enlarged. ? 8. The mitral valve has moderately calcified annulus. ? 9. There is mild mitral valve regurgitation. ? 10. There is mild tricuspid valve regurgitation. ? 11. Mild pulmonary hypertension, estimated pulmonary arterial systolic pressure is 42 mmHg. ? 12. There is trace pulmonic regurgitation. ? 13. There is small circumferential pericardial effusion, most of which is posteriorly located at 1.7 cm. ? 14. No cardiac tamponade. tele monitor: no significant arrhythmia (2) Urinary tract infection: ?Code(s): N39.0 - Urinary tract infection, site not specified ?Status:?Acute ?Assessment and Plan: 01/31/2024: UA showing 3+ urine protein, 2+ urine blood, 3+ leukocytes 21-50, urine RBCs, greater than 100 urine WBCs, 4+ urine bacteria Urine culture obtained and: Klebsiella pneumoniae, stokes sensitivity Blood cultures ordered Continue Rocephin Patient has history incontinence (3) End-stage renal disease on hemodialysis: ?Code(s): N18.6 - End stage renal disease; Z99.2 - Dependence on renal dialysis ?Status:?Acute ?Assessment and Plan: 01/31/2024: Creatinine 5.20 this morning Nephrology consulted for HD HD today (4) Insulin dependent type 2 diabetes mellitus: ?Code(s): E11.9 - Type 2 diabetes mellitus without complications; Z79.4 - [facility] (current) use of insulin ?Status:?Chronic ?Assessment and Plan: 01/31/2024: Blood sugars ranging 111-117 Will obtain a hemoglobin A1c Accu-Cheks AC and HS Hypoglycemic in place Moderate dose sliding scale insulin ordered Will hold linaglipti (5) Hypertension: ?Code(s): I10 - Essential (primary) hypertension ?Status:?Chronic ?Assessment and Plan: 01/31/2024: Blood pressure ranging 160/80-192/70 Continue amlodipine and losartan HD per renal (6) Hyperlipidemia: ?Cod
[2024-02-01 10:28] LABS: Basophils Absolute Auto 0.1 K/mm3 (0.0-0.1); Basophils Percent Auto 1.2 % (0.2-1.2); Eosinophils Absolute Auto 0.2 K/mm3 (0-0.3); Eosinophils Percent Auto 3.5 % (0-4.4); Hematocrit 32.7 % (37.0-47.0); Hemoglobin 10.1 g/dL (12.0-15.0); Immature Granulocyte Absolute 0.02 K/mm3 (0.00-0.031); Immature Granulocyte Percent A 0.3 % (0-0.5); Lymphocytes Absolute Auto 1.12 K/mm3 (0.9-3.2); Lymphocytes Percent Auto 18.8 % (18.3-44.2); Mean Corpuscular HGB Conc 30.9 g/dl (32-36); Mean Corpuscular Hemoglobin 27.2 pg (26-34); Mean Corpuscular Volume 87.9 fl (80-100); Mean Platelet Volume 10.7 fl (7.4-10.4); Monocytes Absolute Auto 0.4 K/mm3 (0.1-0.6); Monocytes Percent Auto 6.9 % (2.6-8.5); Neutrophils Absolute Auto 4.1 K/mm3 (1.3-6.7); Neutrophils Percent Auto 69.3 % (45.5-73.1); Platelet Count Result 180 k/mm3 (150-375); Red Blood Count 3.72 M/mm3 (4.2-5.4); Red Cell Distribution Width 19.8 % (11.5-14.5)
[2024-02-01 10:33] LABS: Anion Gap 5 mmol/L (4-12); Blood Urea Nitrogen 11 mg/dL (7-17); Calcium 9.7 mg/dL (8.4-10.2); Carbon Dioxide 28 mmol/L (22-30); Chloride 102 mmol/L (98-107); Estimated CRCL calculation 14 ml/min; Estimated Glomerular Filt Rate 12; Glucose 145 mg/dL (65-110); Potassium 4.1 mmol/L (3.4-5.0); Sodium 135 mmol/L (137-145)
[2024-02-01 11:44] LABS: Glucose Point of Care 133 mg/dl (65-105)
--- NOTE | 2024-02-01 12:14 | P.PNNP_ITS ---
Progress Note: A&P Assessment and Plan (1) End stage renal disease: Code(s): N18.6 - End stage renal disease Status: Chronic Assessment and Plan: * HD is due tomorrow. * Volume status looks okay. * Her chest x-ray did show pleural effusions and infiltrates before yesterday's dialysis. Today she is looking better. Will remove more fluid tomorrow. * Potassium and bicarbonate are okay * BUN and creatinine look okay (2) Syncope: Code(s): R55 - Syncope and collapse Status: Acute Assessment and Plan: * as noted by EMS report in route to the hospital * evaluation to date noted: * Head CT was negative for any acute intracranial process * carotid dopplers showed 50-69% stenosis in the right internal carotid artery less than 50% stenosis in the left internal carotid artery. * I can not find where she had an orthostatic blood pressure. Will order this * telemetry monitoring * Management and evaluation per hospitalists. (3) Altered mental status: Qualifiers: Altered mental status type: unspecified Qualified Code(s): R41.82 - Altered mental status, unspecified Code(s): R41.82 - Altered mental status, unspecified Status: Acute Assessment and Plan: * She is at baseline mental status currently. (4) Acute UTI: Code(s): N39.0 - Urinary tract infection, site not specified Status: Acute Assessment and Plan: * suggestive by admission UA * follow culture results * on ceftriaxone (5) Hypertension: Code(s): I10 - Essential (primary) hypertension Status: Chronic Assessment and Plan: * elevated on admission * Blood pressure up and down, mostly high. Will see what orthostatics are before adjusting medications and we will removal more fluid tomorrow as well to help the overall blood pressure. (6) Anemia: Code(s): D64.9 - Anemia, unspecified Status: Acute Assessment and Plan: * due to ESRD * H/H at goal * Epogen with HD * follow trend of H/H (7) Insulin dependent type 2 diabetes mellitus: Code(s): E11.9 - Type 2 diabetes mellitus without complications; Z79.4 - group home (current) use of insulin Status: Chronic Assessment and Plan: * follow accu-cheks * glycemic control per hospitalists I will continue follow patient with you while she remains hospitalized and make further recommendations as deemed necessary. Thank you for allowing me to participate in the care of this patient. Subjective Date/time seen: 02/01/24 12:14 Interval history: Patient is feeling okay. Dialysis went well yesterday. 3L were removed. Review of Systems Cardiovascular: Cardiovascular: Reports no additional cardiovascular complaints Respiratory: Respiratory: Reports no additional respiratory complaints Gastrointestinal: Gastrointestinal: Reports no additional gastrointestinal complaints Genitourinary: Genitourinary: Reports no additional female genitourinary complaints Exam Narrative: WDWN in NAD skin no rash head ncat lungs clear cor reg no rub abd BS+ nontender and soft ext no edema. Objective Data Vital Signs Vital Signs: Vital Signs - 24 hr 01/31/24 12:54 01/31/24 12:15 01/31/24 12:30 Temperature 98.8 F Pulse Rate 74 68 71 Respiratory Rate 18
--- NOTE | 2024-02-01 12:14 | PM.PNNEP ---
Progress Note: A&P Assessment and Plan (1) End stage renal disease: Code(s): N18.6 - End stage renal disease Status: Chronic Assessment and Plan: HD is due tomorrow. Volume status looks okay. Her chest x-ray did show pleural effusions and infiltrates before yesterday's dialysis. Today she is looking better. Will remove more fluid tomorrow. Potassium and bicarbonate are okay BUN and creatinine look okay (2) Syncope: Code(s): R55 - Syncope and collapse Status: Acute Assessment and Plan: as noted by EMS report in route to the hospital evaluation to date noted: Head CT was negative for any acute intracranial process carotid dopplers showed 50-69% stenosis in the right internal carotid artery less than 50% stenosis in the left internal carotid artery. I can not find where she had an orthostatic blood pressure. Will order this telemetry monitoring Management and evaluation per hospitalists. (3) Altered mental status: Qualifiers: Altered mental status type: unspecified Qualified Code(s): R41.82 - Altered mental status, unspecified Code(s): R41.82 - Altered mental status, unspecified Status: Acute Assessment and Plan: She is at baseline mental status currently. (4) Acute UTI: Code(s): N39.0 - Urinary tract infection, site not specified Status: Acute Assessment and Plan: suggestive by admission UA follow culture results on ceftriaxone (5) Hypertension: Code(s): I10 - Essential (primary) hypertension Status: Chronic Assessment and Plan: elevated on admission Blood pressure up and down, mostly high. Will see what orthostatics are before adjusting medications and we will removal more fluid tomorrow as well to help the overall blood pressure. (6) Anemia: Code(s): D64.9 - Anemia, unspecified Status: Acute Assessment and Plan: due to ESRD H/H at goal Epogen with HD follow trend of H/H (7) Insulin dependent type 2 diabetes mellitus: Code(s): E11.9 - Type 2 diabetes mellitus without complications; Z79.4 - buttermaker helper (current) use of insulin Status: Chronic Assessment and Plan: follow accu-cheks glycemic control per hospitalists I will continue follow patient with you while she remains hospitalized and make further recommendations as deemed necessary. Thank you for allowing me to participate in the care of this patient. Subjective Date/time seen: 02/01/24 12:14 Interval history: Patient is feeling okay. Dialysis went well yesterday. 3L were removed. Review of Systems Cardiovascular: Cardiovascular: Reports no additional cardiovascular complaints Respiratory: Respiratory: Reports no additional respiratory complaints Gastrointestinal: Gastrointestinal: Reports no additional gastrointestinal complaints Genitourinary: Genitourinary: Reports no additional female genitourinary complaints Exam Narrative: WDWN in NAD skin no rash head ncat lungs clear cor reg no rub abd BS+ nontender and soft ext no edema. Objective Data Vital Signs Vital Signs: Vital Signs - 24 hr 01/31/24 12:54 01/31/24 12:15 01/31/24 12:30 Temperature 98.8 F Pulse Rate 74 68 71 Respiratory Rate 18 Blood Pressure 149/61 H 144/71 H 144/73 H Pulse Oximetry 01/31/24 12:34 01/31/24 14:00 01/31/24 16:00 Temperature 96.9 F L Pulse Rate 70 73 64 Respiratory Rate 18 Blood Pressure 148/76 H 178/62 H Pulse Oximetry 95 01/31/24 21:17 01/31/24 21:29 02/01/24 00:40 Temperature 98.3 F 97.7 F Pulse Rate 66 65 70 Respiratory Rate 14 22 H Blood Pressure 176/52 H 178/55 H Pulse Oximetry 93 92 02/01/24 00:00 02/01/24 05:42 02/01/24 04:00 Temperature 97.7 F Pulse Rate 65 68 65 Respiratory Rate 12 Blood Pressure 171/56 H Pulse Oximetry 94 02/01/24 08:56 02/01/24 08:00 Temperature Pulse Rate 75 66 Resp
[2024-02-01 16:42] LABS: Glucose Point of Care 155 mg/dl (65-105)
--- NOTE | 2024-02-01 18:25 | PC.NURSE ---
On 02/01/24, the RESEARCH ADMINISTRATOR, Susu Tao, provided care and completed [facility] documentation on this patient. I have reviewed the RESEARCH ADMINISTRATOR's documentation and agree with the findings.
[2024-02-01] MEDS: ATORVASTATIN 20 MG TABLET PO (20:29)
[2024-02-01 21:08] LABS: Glucose Point of Care 149 mg/dl (65-105)
[2024-02-02] VITALS (28 sets, daily range): BP systolic 164–184; BP diastolic 49–83; PULSE 53–78; RESP 16–20; TEMP 36.3–37.4; O2SAT 95–98
[2024-02-02 08:19] LABS: Basophils Absolute Auto 0.1 K/mm3 (0.0-0.1); Basophils Percent Auto 1.6 % (0.2-1.2); Eosinophils Absolute Auto 0.4 K/mm3 (0-0.3); Eosinophils Percent Auto 7.1 % (0-4.4); Hematocrit 31.1 % (37.0-47.0); Hemoglobin 9.6 g/dL (12.0-15.0); Immature Granulocyte Absolute 0.01 K/mm3 (0.00-0.031); Immature Granulocyte Percent A 0.2 % (0-0.5); Lymphocytes Absolute Auto 1.06 K/mm3 (0.9-3.2); Lymphocytes Percent Auto 19.2 % (18.3-44.2); Mean Corpuscular HGB Conc 30.9 g/dl (32-36); Mean Corpuscular Hemoglobin 27.6 pg (26-34); Mean Corpuscular Volume 89.4 fl (80-100); Mean Platelet Volume 10.5 fl (7.4-10.4); Monocytes Absolute Auto 0.5 K/mm3 (0.1-0.6); Monocytes Percent Auto 9.6 % (2.6-8.5); Neutrophils Absolute Auto 3.4 K/mm3 (1.3-6.7); Neutrophils Percent Auto 62.3 % (45.5-73.1); Platelet Count Result 172 k/mm3 (150-375); Red Blood Count 3.48 M/mm3 (4.2-5.4); Red Cell Distribution Width 19.7 % (11.5-14.5); White Blood Count 5.5 K/mm3 (4.5-10.0)
[2024-02-02 08:30] LABS: Anion Gap 0 mmol/L (4-12); Blood Urea Nitrogen 14 mg/dL (7-17); Calcium 9.8 mg/dL (8.4-10.2); Carbon Dioxide 32 mmol/L (22-30); Chloride 103 mmol/L (98-107); Estimated CRCL calculation 11 ml/min; Estimated Glomerular Filt Rate 9; Glucose 122 mg/dL (65-110); Potassium 4.2 mmol/L (3.4-5.0); Sodium 135 mmol/L (137-145)
[2024-02-02 08:46] LABS: Glucose Point of Care 120 mg/dl (65-105)
[2024-02-02] MEDS: HEPARIN SODIUM 5,000 UNITS/ML VIAL 5000 UNITS SUB-Q ×2 (08:50→21:27)
--- NOTE | 2024-02-02 09:44 | P.PNNP_ITS ---
Progress Note: A&P Assessment and Plan (1) End stage renal disease: Code(s): N18.6 - End stage renal disease Status: Chronic Assessment and Plan: * HD is underway * Volume status looks okay on exam. * Her chest x-ray did show pleural effusions and infiltrates before yesterday's dialysis. Today she is looking better. Will remove more fluid today * Potassium and bicarbonate are okay * BUN and creatinine look okay (2) Syncope: Code(s): R55 - Syncope and collapse Status: Acute Assessment and Plan: * as noted by EMS report in route to the hospital * evaluation to date noted: * Head CT was negative for any acute intracranial process * carotid dopplers showed 50-69% stenosis in the right internal carotid artery less than 50% stenosis in the left internal carotid artery. * Patient is not have a drop in her blood pressure on standing. * Management and evaluation per hospitalists. (3) Altered mental status: Qualifiers: Altered mental status type: unspecified Qualified Code(s): R41.82 - Altered mental status, unspecified Code(s): R41.82 - Altered mental status, unspecified Status: Acute Assessment and Plan: * She is at baseline mental status currently. (4) Acute UTI: Code(s): N39.0 - Urinary tract infection, site not specified Status: Acute Assessment and Plan: * suggestive by admission UA * follow culture results * on ceftriaxone (5) Hypertension: Code(s): I10 - Essential (primary) hypertension Status: Chronic Assessment and Plan: * elevated on admission * Blood pressure up and down, mostly high. Patient does not have an orthostatic drop. * Will remove fluid today and adjust blood pressure meds depending on her blood pressures after that (6) Anemia: Code(s): D64.9 - Anemia, unspecified Status: Acute Assessment and Plan: * due to ESRD * H/H at goal * Epogen with HD * follow trend of H/H (7) Insulin dependent type 2 diabetes mellitus: Code(s): E11.9 - Type 2 diabetes mellitus without complications; Z79.4 - [facility] living (current) use of insulin Status: Chronic Assessment and Plan: * follow accu-cheks * glycemic control per hospitalists Subjective Date/time seen: 02/02/24 09:44 Interval history: Patient is feeling okay. She is on dialysis and tolerating it well. Removing 3-4 L as tolerated. She was seen at 9:15 a.m. Exam Narrative: WDWN in NAD skin no rash head ncat lungs clear bilaterally cor reg no rub or gallop abd BS+ nontender and soft ext no edema. Objective Data Vital Signs Vital Signs: Vital Signs - 24 hr 02/01/24 12:00 02/01/24 14:35 02/01/24 14:00 Temperature 96.7 F L Pulse Rate 66 72 Respiratory Rate 18 Blood Pressure 140/74 Pulse Oximetry 96 Oxygen Delivery Nasal Cannula Oxygen Flow Rate 2 02/01/24 16:00 02/01/24 20:00 02/01/24 20:00 Temperature 96.7 F L Pulse Rate 65 68 68 Respiratory Rate 18 18 Blood Pressure 179/53 H Pulse Oximetry 96 96 Oxygen Delivery Nasal Cannula Oxygen Flow Rate 2 02/01/24 20:00 02/01/24 20:00 02/01/24 22:00 Temperature 97.4 F L 97.4 F L 97.4 F L
--- NOTE | 2024-02-02 09:44 | PM.PNNEP ---
Progress Note: A&P Assessment and Plan (1) End stage renal disease: Code(s): N18.6 - End stage renal disease Status: Chronic Assessment and Plan: HD is underway Volume status looks okay on exam. Her chest x-ray did show pleural effusions and infiltrates before yesterday's dialysis. Today she is looking better. Will remove more fluid today Potassium and bicarbonate are okay BUN and creatinine look okay (2) Syncope: Code(s): R55 - Syncope and collapse Status: Acute Assessment and Plan: as noted by EMS report in route to the hospital evaluation to date noted: Head CT was negative for any acute intracranial process carotid dopplers showed 50-69% stenosis in the right internal carotid artery less than 50% stenosis in the left internal carotid artery. Patient is not have a drop in her blood pressure on standing. Management and evaluation per hospitalists. (3) Altered mental status: Qualifiers: Altered mental status type: unspecified Qualified Code(s): R41.82 - Altered mental status, unspecified Code(s): R41.82 - Altered mental status, unspecified Status: Acute Assessment and Plan: She is at baseline mental status currently. (4) Acute UTI: Code(s): N39.0 - Urinary tract infection, site not specified Status: Acute Assessment and Plan: suggestive by admission UA follow culture results on ceftriaxone (5) Hypertension: Code(s): I10 - Essential (primary) hypertension Status: Chronic Assessment and Plan: elevated on admission Blood pressure up and down, mostly high. Patient does not have an orthostatic drop. Will remove fluid today and adjust blood pressure meds depending on her blood pressures after that (6) Anemia: Code(s): D64.9 - Anemia, unspecified Status: Acute Assessment and Plan: due to ESRD H/H at goal Epogen with HD follow trend of H/H (7) Insulin dependent type 2 diabetes mellitus: Code(s): E11.9 - Type 2 diabetes mellitus without complications; Z79.4 - termite helper (current) use of insulin Status: Chronic Assessment and Plan: follow accu-cheks glycemic control per hospitalists Subjective Date/time seen: 02/02/24 09:44 Interval history: Patient is feeling okay. She is on dialysis and tolerating it well. Removing 3-4 L as tolerated. She was seen at 9:15 a.m. Exam Narrative: WDWN in NAD skin no rash head ncat lungs clear bilaterally cor reg no rub or gallop abd BS+ nontender and soft ext no edema. Objective Data Vital Signs Vital Signs: Vital Signs - 24 hr 02/01/24 12:00 02/01/24 14:35 02/01/24 14:00 Temperature 96.7 F L Pulse Rate 66 72 Respiratory Rate 18 Blood Pressure 140/74 Pulse Oximetry 96 Oxygen Delivery Nasal Cannula Oxygen Flow Rate 2 02/01/24 16:00 02/01/24 20:00 02/01/24 20:00 Temperature 96.7 F L Pulse Rate 65 68 68 Respiratory Rate 18 18 Blood Pressure 179/53 H Pulse Oximetry 96 96 Oxygen Delivery Nasal Cannula Oxygen Flow Rate 2 02/01/24 20:00 02/01/24 20:00 02/01/24 22:00 Temperature 97.4 F L 97.4 F L 97.4 F L Pulse Rate 70 73 68 Respiratory Rate 20 20 20 Blood Pressure 192/62 H 194/66 H 179/53 H Pulse Oximetry 96 96 96 Oxygen Delivery Oxygen Flow Rate 02/01/24 20:00 02/02/24 00:00 02/02/24 04:00 Temperature Pulse Rate 55 L 65 53 L Respiratory Rate Blood Pressure Pulse Oximetry Oxygen Delivery Oxygen Flow Rate 02/02/24 04:40 02/01/24 23:00 02/02/24 05:32 Temperature 97.6 F Pulse Rate 61 Respiratory Rate 20 Blood Pressure 177/49 H 158/64 H 167/50 H Pulse Oximetry 95 Oxygen Delivery Oxygen Flow Rate 02/02/24 09:06 02/02/24 09:19 02/02/24 09:30 Temperature 98.4 F Pulse Rate 65 64 64 Respiratory Rate 16 Blood Pressure 182/63 H 176/78 H 184/69 H Pulse Oximetry Oxygen Delivery
--- NOTE | 2024-02-02 10:03 | PCPTNOTE ---
The patient treatment was not able to be completed due to patient out of room for dialysis. Will plan to continue treatment per plan of care.
--- NOTE | 2024-02-02 10:13 | P.PNIM_ITS ---
Progress Note: A&P Assessment and Plan (1) Anemia: Code(s): D64.9 - Anemia, unspecified Status: Acute (2) End stage renal disease: Code(s): N18.6 - End stage renal disease Status: Chronic (3) Altered mental status: Qualifiers: Altered mental status type: unspecified Qualified Code(s): R41.82 - Altered mental status, unspecified Code(s): R41.82 - Altered mental status, unspecified Status: Acute (4) Acute UTI: Code(s): N39.0 - Urinary tract infection, site not specified Status: Acute (5) Syncope: Code(s): R55 - Syncope and collapse Status: Acute (6) End-stage renal disease on hemodialysis: Code(s): N18.6 - End stage renal disease; Z99.2 - Dependence on renal dialysis Status: Acute (7) Insulin dependent type 2 diabetes mellitus: Code(s): E11.9 - Type 2 diabetes mellitus without complications; Z79.4 - terminal makeup operator (current) use of insulin Status: Chronic Plan (1) Syncope: ?Code(s): R55 - Syncope and collapse ?Status:?Acute ?Assessment and Plan: 01/31/2024: * EMS report presyncopal episodes in route to the hospital * Patient was given 2 mg of Narcan without any change EN route * Head CT was negative for any acute intracranial process, showed age-related changes, shown encephalomalacia 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 * Continue orthostatic blood pressures Q shift * Continue cardiac monitoring echocardiogram ? 1. Complete two-dimensional, color flow and Doppler transthoracic echocardiogram is performed. ? 2. Left ventricular chamber dimension is mildly enlarged. ? 3. Left ventricular systolic function is normal, estimated at 55-60%. ? 4. There is mild concentric increased left ventricular wall thickness. ? 5. The left ventricular diastolic function is abnormal. ? 6. E/e' 25 is significantly elevated. ? 7. Left atrial chamber dimension is severely enlarged. ? 8. The mitral valve has moderately calcified annulus. ? 9. There is mild mitral valve regurgitation. ? 10. There is mild tricuspid valve regurgitation. ? 11. Mild pulmonary hypertension, estimated pulmonary arterial systolic pressure is 42 mmHg. ? 12. There is trace pulmonic regurgitation. ? 13. There is small circumferential pericardial effusion, most of which is posteriorly located at 1.7 cm. ? 14. No cardiac tamponade. tele monitor: no significant arrhythmia (2) Urinary tract infection: ?Code(s): N39.0 - Urinary tract infection, site not specified ?Status:?Acute ?Assessment and Plan: 01/31/2024: * UA showing 3+ urine protein, 2+ urine blood, 3+ leukocytes 21-50, urine RBCs, greater than 100 urine WBCs, 4+ urine bacteria * Urine culture obtained and: Klebsiella pneumoniae, stokes sensitivity * Blood cultures ordered * Continue Rocephin * Patient has history incontinence (3) End-stage renal disease on hemodialysis: ?Code(s): N18.6 - End stage renal disease; Z99.2 - Dependence on renal dialysis ?Status:?Acute ?Assessment and Plan: 01/31/2024: * Creatinine 5.20 this morning * Nephrology consulted for HD * HD today (4) Insulin dependent type 2 diabetes mellitus: ?Code(s): E11.9 - Type 2 diabetes mellitus without complications; Z79.4 - terminal makeup operator (current) use of insulin ?Status:?Chronic ?Assessment and Plan:
[2024-02-02] MEDS: EPOETIN ALFA-EPBX 10,000 UNITS/ML VIAL 10000 UNITS IV PUSH (11:43)
--- NOTE | 2024-02-02 13:41 | PCPTNOTE ---
Retruned to see patient for PT, however patient continues to be out of room in dialysis. PT will continue to follow per plan of care.
[2024-02-02] MEDS: CLOPIDOGREL BISULFATE 75 MG TABLET PO (15:22)
[2024-02-02] MEDS: MONTELUKAST SODIUM 10 MG TABLET PO (15:22)
[2024-02-02] MEDS: LOSARTAN POTASSIUM 100 MG TABLET PO (15:22)
[2024-02-02] MEDS: carvediloL 25 MG TABLET PO ×2 (15:22→21:32)
[2024-02-02] MEDS: amLODIPine BESYLATE 5 MG TABLET 10 MG PO (15:22)
[2024-02-02 16:13] LABS: Glucose Point of Care 133 mg/dl (65-105)
[2024-02-02] MEDS: AMOXICILLIN/CLAVULANATE K 500-125 MG TAB 1 TABLET PO (17:35)
[2024-02-02] MEDS: hydrALAZINE HCL 20 MG/ML VIAL 10 MG IV PUSH (21:26)
[2024-02-02] MEDS: ATORVASTATIN 20 MG TABLET PO (21:32)
[2024-02-02 23:15] LABS: Glucose Point of Care 130 mg/dl (65-105)
[2024-02-03] VITALS (30 sets, daily range): BP systolic 160–182; BP diastolic 50–81; PULSE 60–84; RESP 18–20; TEMP 36.4–37; O2SAT 98–100
[2024-02-03 07:41] LABS: Glucose Point of Care 145 mg/dl (65-105)
[2024-02-03] MEDS: LOSARTAN POTASSIUM 100 MG TABLET PO (08:20)
[2024-02-03] MEDS: carvediloL 25 MG TABLET PO ×2 (08:20→20:52)
[2024-02-03] MEDS: HEPARIN SODIUM 5,000 UNITS/ML VIAL 5000 UNITS SUB-Q ×2 (08:21→20:52)
[2024-02-03] MEDS: amLODIPine BESYLATE 5 MG TABLET 10 MG PO (08:21)
[2024-02-03] MEDS: CLOPIDOGREL BISULFATE 75 MG TABLET PO (08:21)
[2024-02-03] MEDS: AMOXICILLIN/CLAVULANATE K 500-125 MG TAB 1 TABLET PO ×2 (08:21→18:13)
[2024-02-03] MEDS: MONTELUKAST SODIUM 10 MG TABLET PO (08:21)
[2024-02-03 09:14] LABS: Basophils Absolute Auto 0.1 K/mm3 (0.0-0.1); Basophils Percent Auto 0.9 % (0.2-1.2); Eosinophils Absolute Auto 0.3 K/mm3 (0-0.3); Eosinophils Percent Auto 5.3 % (0-4.4); Hematocrit 32.3 % (37.0-47.0); Hemoglobin 10.4 g/dL (12.0-15.0); Immature Granulocyte Absolute 0.02 K/mm3 (0.00-0.031); Immature Granulocyte Percent A 0.3 % (0-0.5); Lymphocytes Absolute Auto 1.04 K/mm3 (0.9-3.2); Lymphocytes Percent Auto 17.8 % (18.3-44.2); Mean Corpuscular HGB Conc 32.2 g/dl (32-36); Mean Corpuscular Hemoglobin 27.9 pg (26-34); Mean Corpuscular Volume 86.6 fl (80-100); Mean Platelet Volume 9.9 fl (7.4-10.4); Monocytes Absolute Auto 0.5 K/mm3 (0.1-0.6); Monocytes Percent Auto 9.2 % (2.6-8.5); Neutrophils Absolute Auto 3.9 K/mm3 (1.3-6.7); Neutrophils Percent Auto 66.5 % (45.5-73.1); Platelet Count Result 188 k/mm3 (150-375); Red Blood Count 3.73 M/mm3 (4.2-5.4); Red Cell Distribution Width 19.7 % (11.5-14.5); White Blood Count 5.9 K/mm3 (4.5-10.0)
--- NOTE | 2024-02-03 09:44 | P.PNNP_ITS ---
Progress Note: A&P Assessment and Plan (1) End stage renal disease: Code(s): N18.6 - End stage renal disease Status: Chronic Assessment and Plan: * hemodialysis was uncomplicated yesterday. 4L was removed. * Volume status looks okay on exam. * Potassium and bicarbonate are pending as well as BUN and creatinine. (2) Syncope: Code(s): R55 - Syncope and collapse Status: Acute Assessment and Plan: * as noted by EMS report in route to the hospital * evaluation to date noted: * Head CT was negative for any acute intracranial process * carotid dopplers showed 50-69% stenosis in the right internal carotid artery less than 50% stenosis in the left internal carotid artery. * Patient is not have a drop in her blood pressure on standing. * Management and evaluation per hospitalists. (3) Altered mental status: Qualifiers: Altered mental status type: unspecified Qualified Code(s): R41.82 - Altered mental status, unspecified Code(s): R41.82 - Altered mental status, unspecified Status: Acute Assessment and Plan: * She is at baseline mental status currently. (4) Acute UTI: Code(s): N39.0 - Urinary tract infection, site not specified Status: Acute Assessment and Plan: * suggestive by admission UA * follow culture results * on ceftriaxone (5) Hypertension: Code(s): I10 - Essential (primary) hypertension Status: Chronic Assessment and Plan: * elevated on admission * Blood pressure is still running in the 160-180 range even after fluid removal. * She is on amlodipine 10, carvedilol 25 twice a day, losartan 100. Will change losartan to irbesartan. Will continue to remove fluid going forward as an outpatient. (6) Anemia: Code(s): D64.9 - Anemia, unspecified Status: Acute Assessment and Plan: * due to ESRD * H/H at goal at 10.4 * Epogen with HD * follow trend of H/H (7) Insulin dependent type 2 diabetes mellitus: Code(s): E11.9 - Type 2 diabetes mellitus without complications; Z79.4 - [facility] (current) use of insulin Status: Chronic Assessment and Plan: * follow accu-cheks * glycemic control per hospitalists Subjective Date/time seen: 02/03/24 09:44 Interval history: Patient feels okay. No shortness of breath. No swelling. Eager for discharge. Exam Narrative: WDWN in NAD skin no rash head ncat lungs clear to auscultation cor reg no rub or gallop abd BS+ nontender and soft ext no edema. Objective Data Vital Signs Vital Signs: Vital Signs - 24 hr 02/02/24 09:45 02/02/24 10:30 02/02/24 10:45 Temperature Pulse Rate 66 63 61 Respiratory Rate Blood Pressure 180/83 H 169/75 H 164/70 H Pulse Oximetry Oxygen Delivery Oxygen Flow Rate 02/02/24 11:00 02/02/24 11:15 02/02/24 11:45 Temperature Pulse Rate 65 63 69 Respiratory Rate Blood Pressure 166/71 H 164/70 H 176/69 H Pulse Oximetry Oxygen Delivery Oxygen Flow Rate 02/02/24 12:00 02/02/24 12:30 02/02/24 12:50 Temperature Pulse Rate 66 68 68 Respiratory Rate Blood Pressure 164/67 H 169/80 H 177/78 H
--- NOTE | 2024-02-03 09:44 | PM.PNNEP ---
Progress Note: A&P Assessment and Plan (1) End stage renal disease: Code(s): N18.6 - End stage renal disease Status: Chronic Assessment and Plan: hemodialysis was uncomplicated yesterday. 4L was removed. Volume status looks okay on exam. Potassium and bicarbonate are pending as well as BUN and creatinine. (2) Syncope: Code(s): R55 - Syncope and collapse Status: Acute Assessment and Plan: as noted by EMS report in route to the hospital evaluation to date noted: Head CT was negative for any acute intracranial process carotid dopplers showed 50-69% stenosis in the right internal carotid artery less than 50% stenosis in the left internal carotid artery. Patient is not have a drop in her blood pressure on standing. Management and evaluation per hospitalists. (3) Altered mental status: Qualifiers: Altered mental status type: unspecified Qualified Code(s): R41.82 - Altered mental status, unspecified Code(s): R41.82 - Altered mental status, unspecified Status: Acute Assessment and Plan: She is at baseline mental status currently. (4) Acute UTI: Code(s): N39.0 - Urinary tract infection, site not specified Status: Acute Assessment and Plan: suggestive by admission UA follow culture results on ceftriaxone (5) Hypertension: Code(s): I10 - Essential (primary) hypertension Status: Chronic Assessment and Plan: elevated on admission Blood pressure is still running in the 160-180 range even after fluid removal. She is on amlodipine 10, carvedilol 25 twice a day, losartan 100. Will change losartan to irbesartan. Will continue to remove fluid going forward as an outpatient. (6) Anemia: Code(s): D64.9 - Anemia, unspecified Status: Acute Assessment and Plan: due to ESRD H/H at goal at 10.4 Epogen with HD follow trend of H/H (7) Insulin dependent type 2 diabetes mellitus: Code(s): E11.9 - Type 2 diabetes mellitus without complications; Z79.4 - [facility] (current) use of insulin Status: Chronic Assessment and Plan: follow accu-cheks glycemic control per hospitalists Subjective Date/time seen: 02/03/24 09:44 Interval history: Patient feels okay. No shortness of breath. No swelling. Eager for discharge. Exam Narrative: WDWN in NAD skin no rash head ncat lungs clear to auscultation cor reg no rub or gallop abd BS+ nontender and soft ext no edema. Objective Data Vital Signs Vital Signs: Vital Signs - 24 hr 02/02/24 09:45 02/02/24 10:30 02/02/24 10:45 Temperature Pulse Rate 66 63 61 Respiratory Rate Blood Pressure 180/83 H 169/75 H 164/70 H Pulse Oximetry Oxygen Delivery Oxygen Flow Rate 02/02/24 11:00 02/02/24 11:15 02/02/24 11:45 Temperature Pulse Rate 65 63 69 Respiratory Rate Blood Pressure 166/71 H 164/70 H 176/69 H Pulse Oximetry Oxygen Delivery Oxygen Flow Rate 02/02/24 12:00 02/02/24 12:30 02/02/24 12:50 Temperature Pulse Rate 66 68 68 Respiratory Rate Blood Pressure 164/67 H 169/80 H 177/78 H Pulse Oximetry Oxygen Delivery Oxygen Flow Rate 02/02/24 12:55 02/02/24 10:00 02/02/24 10:15 Temperature 98.6 F Pulse Rate 73 64 64 Respiratory Rate 20 Blood Pressure 172/74 H 173/76 H 164/75 H Pulse Oximetry Oxygen Delivery Oxygen Flow Rate 02/02/24 11:30 02/02/24 12:15 02/02/24 14:00 Temperature 97.7 F Pulse Rate 65 69 74 Respiratory Rate 18 Blood Pressure 164/62 H 167/71 H 182/62 H Pulse Oximetry 98 Oxygen Delivery Oxygen Flow Rate 02/02/24 14:50 02/02/24 12:00 02/02/24 16:00 Temperature Pulse Rate 68 66 Respiratory Rate Blood Pressure Pulse Oximetry Oxygen Delivery Nasal Cannula Oxygen Flow Rate 3 02/02/24 21:32 02/02/24 20:00 02/02/24 20:00 Temperature 97.3 F L 97.3 F L
[2024-02-03 09:56] LABS: Anion Gap 6 mmol/L (4-12); Blood Urea Nitrogen 12 mg/dL (7-17); Calcium 9.8 mg/dL (8.4-10.2); Carbon Dioxide 29 mmol/L (22-30); Chloride 97 mmol/L (98-107); Estimated CRCL calculation 13 ml/min; Estimated Glomerular Filt Rate 13; Glucose 187 mg/dL (65-110); Potassium 3.7 mmol/L (3.4-5.0); Sodium 132 mmol/L (137-145)
[2024-02-03 11:47] LABS: Glucose Point of Care 179 mg/dl (65-105)
[2024-02-03] MEDS: SODIUM CHLORIDE 0.9% IV 1,000 ML 999 ML (16:13)
[2024-02-03] MEDS: HEPARIN SODIUM 1,000 UNITS/ML VIAL 4000 UNITS (17:45)
[2024-02-03] MEDS: ATORVASTATIN 20 MG TABLET PO (20:52)
[2024-02-03 23:01] LABS: Glucose Point of Care 163 mg/dl (65-105)
[2024-02-03] MEDS: hydrALAZINE HCL 20 MG/ML VIAL 10 MG IV PUSH (23:03)
[2024-02-04] VITALS (11 sets, daily range): BP systolic 159–181; BP diastolic 49–82; PULSE 62–71; RESP 18–20; TEMP 36.3–37.4; O2SAT 97–98
[2024-02-04 07:56] LABS: Glucose Point of Care 134 mg/dl (65-105)
--- NOTE | 2024-02-04 08:54 | PM.IMPN ---
Progress Note: A&P Assessment and Plan (1) Anemia: Code(s): D64.9 - Anemia, unspecified Status: Acute (2) End stage renal disease: Code(s): N18.6 - End stage renal disease Status: Chronic (3) Altered mental status: Qualifiers: Altered mental status type: unspecified Qualified Code(s): R41.82 - Altered mental status, unspecified Code(s): R41.82 - Altered mental status, unspecified Status: Acute (4) Acute UTI: Code(s): N39.0 - Urinary tract infection, site not specified Status: Acute (5) Syncope: Code(s): R55 - Syncope and collapse Status: Acute (6) End-stage renal disease on hemodialysis: Code(s): N18.6 - End stage renal disease; Z99.2 - Dependence on renal dialysis Status: Acute (7) Insulin dependent type 2 diabetes mellitus: Code(s): E11.9 - Type 2 diabetes mellitus without complications; Z79.4 - intermodal owner operator truck driver (current) use of insulin Status: Chronic Plan Pulmonary congestion and hypoxemia Patient still has some shortness breath with exertion Crackles of scattered bilateral lower lobe X-ray showed cardiomegaly pulmonary congestion 4 L fluid was removed yesterday 02/01 may need dialysis in the next a few days Syncope: ?Code(s): R55 - Syncope and collapse ?Status:?Acute ?Assessment and Plan: 01/31/2024: EMS report presyncopal episodes in route to the hospital Patient was given 2 mg of Narcan without any change EN route Head CT was negative for any acute intracranial process, showed age-related changes, shown encephalomalacia consistent with 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 Continue orthostatic blood pressures Q shift Continue cardiac monitoring echocardiogram ? 1. Complete two-dimensional, color flow and Doppler transthoracic echocardiogram is performed. ? 2. Left ventricular chamber dimension is mildly enlarged. ? 3. Left ventricular systolic function is normal, estimated at 55-60%. ? 4. There is mild concentric increased left ventricular wall thickness. ? 5. The left ventricular diastolic function is abnormal. ? 6. E/e' 25 is significantly elevated. ? 7. Left atrial chamber dimension is severely enlarged. ? 8. The mitral valve has moderately calcified annulus. ? 9. There is mild mitral valve regurgitation. ? 10. There is mild tricuspid valve regurgitation. ? 11. Mild pulmonary hypertension, estimated pulmonary arterial systolic pressure is 42 mmHg. ? 12. There is trace pulmonic regurgitation. ? 13. There is small circumferential pericardial effusion, most of which is posteriorly located at 1.7 cm. ? 14. No cardiac tamponade. tele monitor: no significant arrhythmia (2) Urinary tract infection: ?Code(s): N39.0 - Urinary tract infection, site not specified ?Status:?Acute ?Assessment and Plan: 01/31/2024: UA showing 3+ urine protein, 2+ urine blood, 3+ leukocytes 21-50, urine RBCs, greater than 100 urine WBCs, 4+ urine bacteria Urine culture obtained and: Klebsiella pneumoniae, stokes sensitivity Blood cultures ordered Continue Rocephin Patient has history incontinence (3) End-stage renal disease on hemodialysis: ?Code(s): N18.6 - End stage renal disease; Z99.2 - Dependence on renal dialysis ?Status:?Acute ?Assessment and Plan: 01/31/2024: Creatinine 5.20 this morning Nephrology consulted for HD HD today (4) Insulin dependent type 2 diabetes mellitus: ?Code(s): E11.9 - Type 2 diabetes mellitus without complications; Z79.4 - shelter (current) use of insulin ?Status:?Chronic ?Assessment and Plan: 01/31/2024: Blood sugars ranging 111-117 Will obtain a hemoglobin A1c Accu-Cheks AC and HS Hypoglycemic in place Moderate dose sliding scale insulin ordered Will hold linaglipti
--- NOTE | 2024-02-04 08:55 | PM.IMPN ---
Progress Note: A&P Assessment and Plan (1) End stage renal disease: Code(s): N18.6 - End stage renal disease Status: Chronic (2) Acute UTI: Code(s): N39.0 - Urinary tract infection, site not specified Status: Acute (3) Hyperlipidemia: Code(s): E78.5 - Hyperlipidemia, unspecified Status: Chronic (4) End-stage renal disease on hemodialysis: Code(s): N18.6 - End stage renal disease; Z99.2 - Dependence on renal dialysis Status: Acute (5) Insulin dependent type 2 diabetes mellitus: Code(s): E11.9 - Type 2 diabetes mellitus without complications; Z79.4 - assisted (current) use of insulin Status: Chronic (6) Acute respiratory failure with hypoxemia: Code(s): J96.01 - Acute respiratory failure with hypoxia Status: Acute (7) Fluid overload: Code(s): E87.70 - Fluid overload, unspecified Status: Acute (8) Hypertensive urgency: Code(s): I16.0 - Hypertensive urgency Status: Acute Plan Syncope: ?Code(s): R55 - Syncope and collapse ?Status:?Acute ?Assessment and Plan: 01/31/2024: EMS report presyncopal episodes in route to the hospital Patient was given 2 mg of Narcan without any change EN route Head CT was negative for any acute intracranial process, showed age-related changes, shown encephalomalacia consistent with 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 Continue orthostatic blood pressures Q shift Continue cardiac monitoring?echocardiogram ? 1. Complete two-dimensional, color flow and Doppler transthoracic echocardiogram is performed. ? 2. Left ventricular chamber dimension is mildly enlarged. ? 3. Left ventricular systolic function is normal, estimated at 55-60%. ? 4. There is mild concentric increased left ventricular wall thickness. ? 5. The left ventricular diastolic function is abnormal. ? 6. E/e' 25 is significantly elevated. ? 7. Left atrial chamber dimension is severely enlarged. ? 8. The mitral valve has moderately calcified annulus. ? 9. There is mild mitral valve regurgitation. ? 10. There is mild tricuspid valve regurgitation. ? 11. Mild pulmonary hypertension, estimated pulmonary arterial systolic pressure is 42 mmHg. ? 12. There is trace pulmonic regurgitation. ? 13. There is small circumferential pericardial effusion, most of which is posteriorly located at 1.7 cm. ? 14. No cardiac tamponade. tele monitor: no significant arrhythmia Fluid overload Patient has crackles bilateral base, X-ray showed pulmonary congestion Patient has been having hemodialysis in past 2 days, I have discussed case with production support specialist, production support specialist plans hemodialysis tomorrow Hypoxemia Likely secondary to pulmonary congestion, fluid overload Continue O2 therapy Urinary tract infection: ?Code(s): N39.0 - Urinary tract infection, site not specified ?Status:?Acute ?Assessment and Plan: 01/31/2024: UA showing 3+ urine protein, 2+ urine blood, 3+ leukocytes 21-50, urine RBCs, greater than 100 urine WBCs, 4+ urine bacteria Urine culture obtained and: Klebsiella pneumoniae, stokes sensitivity Blood cultures ordered Continue Rocephin Patient has history incontinence End-stage renal disease on hemodialysis: ?Code(s): N18.6 - End stage renal disease; Z99.2 - Dependence on renal dialysis ?Status:?Acute ?Assessment and Plan: 01/31/2024: Creatinine 5.20 this morning Nephrology consulted for HD HD arranged by production support specialist (4) Insulin dependent type 2 diabetes mellitus: ?Code(s): E11.9 - Type 2 diabetes mellitus without complications; Z79.4 - assisted (current) use of insulin ?Status:?Chronic ?Assessment and Plan: 01/31/2024: Blood sugars ranging 111-117 Will obtain a hemoglobin A1c Accu-Cheks AC and HS
[2024-02-04] MEDS: HEPARIN SODIUM 5,000 UNITS/ML VIAL 5000 UNITS SUB-Q ×2 (08:56→20:23)
[2024-02-04] MEDS: amLODIPine BESYLATE 5 MG TABLET 10 MG PO (08:57)
[2024-02-04] MEDS: carvediloL 25 MG TABLET PO ×2 (08:57→20:22)
[2024-02-04] MEDS: MONTELUKAST SODIUM 10 MG TABLET PO (08:57)
[2024-02-04] MEDS: CLOPIDOGREL BISULFATE 75 MG TABLET PO (08:57)
[2024-02-04] MEDS: AMOXICILLIN/CLAVULANATE K 500-125 MG TAB 1 TABLET PO ×2 (08:57→17:05)
[2024-02-04] MEDS: IRBESARTAN 150 MG TABLET PO (08:57)
--- NOTE | 2024-02-04 09:33 | P.PNNP_ITS ---
Progress Note: A&P Assessment and Plan (1) End stage renal disease: Code(s): N18.6 - End stage renal disease Status: Chronic Assessment and Plan: * Patient had a dry ultrafiltration yesterday and 4 more L were removed. * Volume status looks okay on exam. She has a few crackles it will probably take him few more dialysis sessions to clear the lungs up. * Will take more fluid off tomorrow. * Fluid restrict. * Potassium and bicarbonate are doing OK (2) Syncope: Code(s): R55 - Syncope and collapse Status: Acute Assessment and Plan: * as noted by EMS report in route to the hospital * evaluation to date noted: * Head CT was negative for any acute intracranial process * carotid dopplers showed 50-69% stenosis in the right internal carotid artery less than 50% stenosis in the left internal carotid artery. * Patient is not have a drop in her blood pressure on standing. * Management and evaluation per hospitalists. (3) Altered mental status: Qualifiers: Altered mental status type: unspecified Qualified Code(s): R41.82 - Altered mental status, unspecified Code(s): R41.82 - Altered mental status, unspecified Status: Acute Assessment and Plan: * She is at baseline mental status currently. (4) Acute UTI: Code(s): N39.0 - Urinary tract infection, site not specified Status: Acute Assessment and Plan: * suggestive by admission UA * Klebsiella on culture * on ceftriaxone (5) Hypertension: Code(s): I10 - Essential (primary) hypertension Status: Chronic Assessment and Plan: * elevated on admission * Blood pressure is still running in the 160-180 range even after fluid removal. * She is on amlodipine 10, carvedilol 25 twice a day, and irbesartan is just starting today. (6) Anemia: Code(s): D64.9 - Anemia, unspecified Status: Acute Assessment and Plan: * due to ESRD * H/H at goal at 10.4 * Epogen with HD * follow trend of H/H (7) Insulin dependent type 2 diabetes mellitus: Code(s): E11.9 - Type 2 diabetes mellitus without complications; Z79.4 - snf (current) use of insulin Status: Chronic Assessment and Plan: * follow accu-cheks * glycemic control per hospitalists Subjective Date/time seen: 02/04/24 09:33 Interval history: patient feels okay. She is not short of breath. She is still on oxygen 2L. Her O2 sat is up to 98%. No swelling Exam Narrative: WDWN in NAD skin no rash head ncat lungs rare crackles at bases. cor reg no rub or gallop abd BS+ nontender and soft ext no edema. Objective Data Vital Signs Vital Signs: Vital Signs - 24 hr 02/03/24 10:42 02/03/24 11:27 02/03/24 11:29 Temperature Pulse Rate 64 61 Respiratory Rate Blood Pressure 178/56 H 178/60 H Pulse Oximetry 99 Oxygen Delivery Nasal Cannula Oxygen Flow Rate 3 02/03/24 11:29 02/03/24 14:52 02/03/24 16:13 Temperature 97.5 F L Pulse Rate 66 63 Respiratory Rate 18 Blood Pressure 176/59 H 160/54 H Pulse Oximetry 98 Oxygen Delivery Oxygen Flow Rate 2 02/03/24 16:13 02/03/24 16:21 02/03/24
--- NOTE | 2024-02-04 09:33 | PM.PNNEP ---
Progress Note: A&P Assessment and Plan (1) End stage renal disease: Code(s): N18.6 - End stage renal disease Status: Chronic Assessment and Plan: Patient had a dry ultrafiltration yesterday and 4 more L were removed. Volume status looks okay on exam. She has a few crackles it will probably take him few more dialysis sessions to clear the lungs up. Will take more fluid off tomorrow. Fluid restrict. Potassium and bicarbonate are doing OK (2) Syncope: Code(s): R55 - Syncope and collapse Status: Acute Assessment and Plan: as noted by EMS report in route to the hospital evaluation to date noted: Head CT was negative for any acute intracranial process carotid dopplers showed 50-69% stenosis in the right internal carotid artery less than 50% stenosis in the left internal carotid artery. Patient is not have a drop in her blood pressure on standing. Management and evaluation per hospitalists. (3) Altered mental status: Qualifiers: Altered mental status type: unspecified Qualified Code(s): R41.82 - Altered mental status, unspecified Code(s): R41.82 - Altered mental status, unspecified Status: Acute Assessment and Plan: She is at baseline mental status currently. (4) Acute UTI: Code(s): N39.0 - Urinary tract infection, site not specified Status: Acute Assessment and Plan: suggestive by admission UA Klebsiella on culture on ceftriaxone (5) Hypertension: Code(s): I10 - Essential (primary) hypertension Status: Chronic Assessment and Plan: elevated on admission Blood pressure is still running in the 160-180 range even after fluid removal. She is on amlodipine 10, carvedilol 25 twice a day, and irbesartan is just starting today. 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 She is not short of breath. She is still on oxygen 2L. Her O2 sat is up to 98%. No swelling Exam Narrative: WDWN in NAD skin no rash head ncat lungs rare crackles at bases. cor reg no rub or gallop abd BS+ nontender and soft ext no edema. Objective Data Vital Signs Vital Signs: Vital Signs - 24 hr 02/03/24 10:42 02/03/24 11:27 02/03/24 11:29 Temperature Pulse Rate 64 61 Respiratory Rate Blood Pressure 178/56 H 178/60 H Pulse Oximetry 99 Oxygen Delivery Nasal Cannula Oxygen Flow Rate 3 02/03/24 11:29 02/03/24 14:52 02/03/24 16:13 Temperature 97.5 F L Pulse Rate 66 63 Respiratory Rate 18 Blood Pressure 176/59 H 160/54 H Pulse Oximetry 98 Oxygen Delivery Oxygen Flow Rate 2 02/03/24 16:13 02/03/24 16:21 02/03/24 16:30 Temperature 97.9 F Pulse Rate 65 84 63 Respiratory Rate 18 Blood Pressure 181/77 H 180/81 H 177/74 H Pulse Oximetry Oxygen Delivery Oxygen Flow Rate 02/03/24 16:45 02/03/24 17:00 02/03/24 17:15 Temperature Pulse Rate 63 64 61 Respiratory Rate Blood Pressure 173/72 H 176/71 H 161/74 H Pulse Oximetry Oxygen Delivery Oxygen Flow Rate 02/03/24 17:30 02/03/24 17:45 02/03/24 18:00 Temperature Pulse Rate 62 62 63 Respiratory Rate Blood Pressure 171/64 H 175/69 H 161/70 H Pulse Oximetry Oxygen Delivery Oxygen Flow Rate 02/03/24 18:15 02/03/24 19:21 02/03/24 19:30 Temperature 98.1 F Pulse Rate 63 64 68 Respiratory Rate 18 Blood Pressure 173/54 H 174/65 H 180/75 H Pulse Ox
[2024-02-04 11:37] LABS: Glucose Point of Care 177 mg/dl (65-105)
[2024-02-04 16:36] LABS: Glucose Point of Care 184 mg/dl (65-105)
[2024-02-04] MEDS: hydrALAZINE HCL 20 MG/ML VIAL 10 MG IV PUSH (19:06)
[2024-02-04] MEDS: ATORVASTATIN 20 MG TABLET PO (20:23)
[2024-02-04 22:21] LABS: Glucose Point of Care 173 mg/dl (65-105)
[2024-02-05] VITALS (28 sets, daily range): BP systolic 151–170; BP diastolic 39–74; PULSE 60–80; RESP 16–18; TEMP 35.2–37.9; O2SAT 96–100
[2024-02-05] MEDS: hydrALAZINE HCL 20 MG/ML VIAL 10 MG IV PUSH ×2 (05:23→17:19)
[2024-02-05 07:24] LABS: Hematocrit 31.5 % (37.0-47.0); Hemoglobin 9.9 g/dL (12.0-15.0); Mean Corpuscular HGB Conc 31.4 g/dl (32-36); Mean Corpuscular Hemoglobin 27.5 pg (26-34); Mean Corpuscular Volume 87.5 fl (80-100); Mean Platelet Volume 10.1 fl (7.4-10.4); Platelet Count Result 207 k/mm3 (150-375); Red Cell Distribution Width 20.2 % (11.5-14.5); White Blood Count 5.7 K/mm3 (4.5-10.0)
[2024-02-05 07:36] LABS: Albumin Level 3.2 g/dL (3.5-5.1); Anion Gap 3 mmol/L (4-12); Blood Urea Nitrogen 23 mg/dL (7-17); Calcium 9.8 mg/dL (8.4-10.2); Carbon Dioxide 29 mmol/L (22-30); Chloride 100 mmol/L (98-107); Estimated CRCL calculation 8 ml/min; Estimated Glomerular Filt Rate 7; Glucose 117 mg/dL (65-110); Phosphorus 3.9 mg/dL (2.5-4.5); Potassium 3.9 mmol/L (3.4-5.0); Sodium 132 mmol/L (137-145)
[2024-02-05 08:31] LABS: Glucose Point of Care 129 mg/dl (65-105)
--- NOTE | 2024-02-05 10:27 | PC.NURSE ---
Pt transported to dialysis. All morning medications will be administered following dialysis.
--- NOTE | 2024-02-05 10:37 | PCPTNOTE ---
The patient treatment was not able to be completed due to PT out of room for dialysis. Will plan to continue treatment per plan of care.
--- NOTE | 2024-02-05 11:52 | P.PNNP_ITS ---
Progress Note: A&P Assessment and Plan (1) End stage renal disease: Code(s): N18.6 - End stage renal disease Status: Chronic Assessment and Plan: * Patient had a dry ultrafiltration last week and 4 more L were removed. * Volume status looks okay on exam. sounds better today * Will take more fluid off today, 4 L. * Fluid restrict. * Potassium and bicarbonate are doing OK (2) Syncope: Code(s): R55 - Syncope and collapse Status: Acute Assessment and Plan: * as noted by EMS report in route to the hospital * evaluation to date noted: * Head CT was negative for any acute intracranial process * carotid dopplers showed 50-69% stenosis in the right internal carotid artery less than 50% stenosis in the left internal carotid artery. * Patient is not have a drop in her blood pressure on standing. * Management and evaluation per hospitalists. (3) Altered mental status: Qualifiers: Altered mental status type: unspecified Qualified Code(s): R41.82 - Altered mental status, unspecified Code(s): R41.82 - Altered mental status, unspecified Status: Acute Assessment and Plan: * She is at baseline mental status currently. (4) Acute UTI: Code(s): N39.0 - Urinary tract infection, site not specified Status: Acute Assessment and Plan: * suggestive by admission UA * Klebsiella on culture * on ceftriaxone earlier, Augmentin now po (5) Hypertension: Code(s): I10 - Essential (primary) hypertension Status: Chronic Assessment and Plan: * elevated on admission * Blood pressure is still running in the 160-180 range even after fluid removal. 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 Echo: EF 55-60%, has diastolic heart failure. Carotid dopplers: 50-69% stenosis in the right internal carotid artery less than 50% stenosis in the left internal carotid artery. CT head- negative AMS due to UTI : antibiotics Seen and examined on hemodialysis Feels OK Breathing is better No swelling Still using oxygen Exam Const: Other: WD, WN, VVS per chart, seen and examined on hemodialysis, comfortable with breathing, skin dry, JVD is hard to see, RRR, no gallop, no rub, equal breath sounds, soft non tender abdomen, no edema, alert and oriented x 3, no tremors Objective Data Vital Signs Vital Signs: Vital Signs - 24 hr 02/04/24 14:00 02/04/24 14:06 02/04/24 14:07 Temperature 36.8 C Pulse Rate 71 Respiratory Rate 18 Blood Pressure 169/76 H 170/74 H 173/78 H Pulse Oximetry 97 Oxygen Delivery Oxygen Flow Rate Fraction of Inspired Oxygen 02/04/24 19:05 02/04/24
--- NOTE | 2024-02-05 11:52 | PM.PNNEP ---
Progress Note: A&P Assessment and Plan (1) End stage renal disease: Code(s): N18.6 - End stage renal disease Status: Chronic Assessment and Plan: Patient had a dry ultrafiltration last week and 4 more L were removed. Volume status looks okay on exam. sounds better today Will take more fluid off today, 4 L. Fluid restrict. Potassium and bicarbonate are doing OK (2) Syncope: Code(s): R55 - Syncope and collapse Status: Acute Assessment and Plan: as noted by EMS report in route to the hospital evaluation to date noted: Head CT was negative for any acute intracranial process carotid dopplers showed 50-69% stenosis in the right internal carotid artery less than 50% stenosis in the left internal carotid artery. Patient is not have a drop in her blood pressure on standing. Management and evaluation per hospitalists. (3) Altered mental status: Qualifiers: Altered mental status type: unspecified Qualified Code(s): R41.82 - Altered mental status, unspecified Code(s): R41.82 - Altered mental status, unspecified Status: Acute Assessment and Plan: She is at baseline mental status currently. (4) Acute UTI: Code(s): N39.0 - Urinary tract infection, site not specified Status: Acute Assessment and Plan: suggestive by admission UA Klebsiella on culture on ceftriaxone earlier, Augmentin now po (5) Hypertension: Code(s): I10 - Essential (primary) hypertension Status: Chronic Assessment and Plan: elevated on admission Blood pressure is still running in the 160-180 range even after fluid removal. She is on amlodipine 10, carvedilol 25 twice a day, and irbesartan is just started yesterday (6) Anemia: Code(s): D64.9 - Anemia, unspecified Status: Acute Assessment and Plan: due to ESRD H/H: monitor Epogen with HD follow trend of H/H (7) Insulin dependent type 2 diabetes mellitus: Code(s): E11.9 - Type 2 diabetes mellitus without complications; Z79.4 - intermediate school teacher (current) use of insulin Status: Chronic Assessment and Plan: follow accu-cheks glycemic control per hospitalists Subjective Date/time seen: 02/05/24 11:52 Interval history: Follow up ESRD Admitted 01/30/24 with nausea, dizziness, syncope. Echo: EF 55-60%, has diastolic heart failure. Carotid dopplers: 50-69% stenosis in the right internal carotid artery less than 50% stenosis in the left internal carotid artery. CT head- negative AMS due to UTI : antibiotics Seen and examined on hemodialysis Feels OK Breathing is better No swelling Still using oxygen Exam Const: Other: WD, WN, VVS per chart, seen and examined on hemodialysis, comfortable with breathing, skin dry, JVD is hard to see, RRR, no gallop, no rub, equal breath sounds, soft non tender abdomen, no edema, alert and oriented x 3, no tremors Objective Data Vital Signs Vital Signs: Vital Signs - 24 hr 02/04/24 14:00 02/04/24 14:06 02/04/24 14:07 Temperature 36.8 C Pulse Rate 71 Respiratory Rate 18 Blood Pressure 169/76 H 170/74 H 173/78 H Pulse Oximetry 97 Oxygen Delivery Oxygen Flow Rate Fraction of Inspired Oxygen 02/04/24 19:05 02/04/24 20:22 02/04/24 21:57 Temperature 37.4 C Pulse Rate 62 68 Respiratory Rate 20 Blood Pressure 171/82 H 159/49 H Pulse Oximetry 98 Oxygen Delivery Oxygen Flow Rate Fraction of Inspired Oxygen 02/05/24 05:54 02/05/24 08:31 02/05/24 07:30 Temperature 37.1 C 36.5 C Pulse Rate 62 65 Respiratory Rate 18 16 Blood Pressure 170/52 H 156/48 H Pulse Oximetry 98 96 99 Oxygen Delivery Nasal Cannula Oxygen Flow Rate 2 Fraction of Inspired Oxygen 28 Intake/Output Intake/Output: Intake & Output 02/02/24 02/03/24 02/04/24 02/05/24 23:59 23:59 23:59 23:59 Intake Total 2050 450 750 280 Output Total 4000 4000 Bal
[2024-02-05] MEDS: EPOETIN ALFA-EPBX 10,000 UNITS/ML VIAL 10000 UNITS IV PUSH (12:50)
--- NOTE | 2024-02-05 14:18 | PCPTNOTE ---
Attempted to see patient for PT, however patient was out of the room for dialysis.
--- NOTE | 2024-02-05 15:06 | PM.IMPN ---
Progress Note: A&P Assessment and Plan (1) End stage renal disease: Code(s): N18.6 - End stage renal disease Status: Chronic (2) Acute UTI: Code(s): N39.0 - Urinary tract infection, site not specified Status: Acute (3) Hyperlipidemia: Code(s): E78.5 - Hyperlipidemia, unspecified Status: Chronic (4) End-stage renal disease on hemodialysis: Code(s): N18.6 - End stage renal disease; Z99.2 - Dependence on renal dialysis Status: Acute (5) Insulin dependent type 2 diabetes mellitus: Code(s): E11.9 - Type 2 diabetes mellitus without complications; Z79.4 - residential (current) use of insulin Status: Chronic (6) Acute respiratory failure with hypoxemia: Code(s): J96.01 - Acute respiratory failure with hypoxia Status: Acute (7) Fluid overload: Code(s): E87.70 - Fluid overload, unspecified Status: Acute (8) Hypertensive urgency: Code(s): I16.0 - Hypertensive urgency Status: Acute Plan Syncope: ?Code(s): R55 - Syncope and collapse ?Status:?Acute ?Assessment and Plan: 01/31/2024: EMS report presyncopal episodes in route to the hospital Patient was given 2 mg of Narcan without any change EN route Head CT was negative for any acute intracranial process, showed age-related changes, shown encephalomalacia consistent with 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 Continue orthostatic blood pressures Q shift Continue cardiac monitoring?echocardiogram ? 1. Complete two-dimensional, color flow and Doppler transthoracic echocardiogram is performed. ? 2. Left ventricular chamber dimension is mildly enlarged. ? 3. Left ventricular systolic function is normal, estimated at 55-60%. ? 4. There is mild concentric increased left ventricular wall thickness. ? 5. The left ventricular diastolic function is abnormal. ? 6. E/e' 25 is significantly elevated. ? 7. Left atrial chamber dimension is severely enlarged. ? 8. The mitral valve has moderately calcified annulus. ? 9. There is mild mitral valve regurgitation. ? 10. There is mild tricuspid valve regurgitation. ? 11. Mild pulmonary hypertension, estimated pulmonary arterial systolic pressure is 42 mmHg. ? 12. There is trace pulmonic regurgitation. ? 13. There is small circumferential pericardial effusion, most of which is posteriorly located at 1.7 cm. ? 14. No cardiac tamponade. tele monitor: no significant arrhythmia Fluid overload Patient has crackles bilateral base, X-ray showed pulmonary congestion Patient has been having hemodialysis in past 2 days, I have discussed case with peoplesoft analyst, peoplesoft analyst plans hemodialysis tomorrow 02/03 02/04 on HD today, plans remove 4 L fluid tolerates HD well Hypoxemia Likely secondary to pulmonary congestion, fluid overload Continue O2 therapy on 2L Urinary tract infection: ?Code(s): N39.0 - Urinary tract infection, site not specified ?Status:?Acute ?Assessment and Plan: 01/31/2024: UA showing 3+ urine protein, 2+ urine blood, 3+ leukocytes 21-50, urine RBCs, greater than 100 urine WBCs, 4+ urine bacteria Urine culture obtained and: Klebsiella pneumoniae, stokes sensitivity Blood cultures ordered received Rocephin Patient has history incontinence change to augmentin po till 02/06 End-stage renal disease on hemodialysis: ?Code(s): N18.6 - End stage renal disease; Z99.2 - Dependence on renal dialysis ?Status:?Acute ?Assessment and Plan: 01/31/2024: Creatinine 5.20 this morning Nephrology consulted for HD HD arranged by peoples[employer] analyst fluid overloaded (4) Insulin dependent type 2 diabetes mellitus: ?Code(s): E11.9 - Type 2 diabetes mellitus without complications; Z79.4 - residential (current) use of insulin ?Status:?Chr
[2024-02-05 16:35] LABS: Glucose Point of Care 126 mg/dl (65-105)
[2024-02-05] MEDS: AMOXICILLIN/CLAVULANATE K 500-125 MG TAB 1 TABLET PO (17:18)
[2024-02-05] MEDS: HEPARIN SODIUM 5,000 UNITS/ML VIAL 5000 UNITS SUB-Q (20:43)
[2024-02-05] MEDS: carvediloL 25 MG TABLET PO (20:44)
[2024-02-05] MEDS: ATORVASTATIN 20 MG TABLET PO (20:44)
[2024-02-05 21:42] LABS: Glucose Point of Care 163 mg/dl (65-105)
[2024-02-06] VITALS (10 sets, daily range): BP systolic 148–172; BP diastolic 44–63; PULSE 54–72; RESP 16–18; TEMP 36.1–37.4; O2SAT 94–100
[2024-02-06 07:35] LABS: Glucose Point of Care 108 mg/dl (65-105)
--- NOTE | 2024-02-06 09:02 | PM.IMPN ---
Progress Note: A&P Assessment and Plan (1) End stage renal disease: Code(s): N18.6 - End stage renal disease Status: Chronic (2) Acute UTI: Code(s): N39.0 - Urinary tract infection, site not specified Status: Acute (3) Hyperlipidemia: Code(s): E78.5 - Hyperlipidemia, unspecified Status: Chronic (4) End-stage renal disease on hemodialysis: Code(s): N18.6 - End stage renal disease; Z99.2 - Dependence on renal dialysis Status: Acute (5) Insulin dependent type 2 diabetes mellitus: Code(s): E11.9 - Type 2 diabetes mellitus without complications; Z79.4 - [facility] (current) use of insulin Status: Chronic (6) Acute respiratory failure with hypoxemia: Code(s): J96.01 - Acute respiratory failure with hypoxia Status: Acute (7) Fluid overload: Code(s): E87.70 - Fluid overload, unspecified Status: Acute (8) Hypertensive urgency: Code(s): I16.0 - Hypertensive urgency Status: Acute Plan Syncope: ?Code(s): R55 - Syncope and collapse ?Status:?Acute ?Assessment and Plan: 01/31/2024: EMS report presyncopal episodes in route to the hospital Patient was given 2 mg of Narcan without any change EN route Head CT was negative for any acute intracranial process, showed age-related changes, shown encephalomalacia consistent with 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 Continue orthostatic blood pressures Q shift Continue cardiac monitoring?echocardiogram ? 1. Complete two-dimensional, color flow and Doppler transthoracic echocardiogram is performed. ? 2. Left ventricular chamber dimension is mildly enlarged. ? 3. Left ventricular systolic function is normal, estimated at 55-60%. ? 4. There is mild concentric increased left ventricular wall thickness. ? 5. The left ventricular diastolic function is abnormal. ? 6. E/e' 25 is significantly elevated. ? 7. Left atrial chamber dimension is severely enlarged. ? 8. The mitral valve has moderately calcified annulus. ? 9. There is mild mitral valve regurgitation. ? 10. There is mild tricuspid valve regurgitation. ? 11. Mild pulmonary hypertension, estimated pulmonary arterial systolic pressure is 42 mmHg. ? 12. There is trace pulmonic regurgitation. ? 13. There is small circumferential pericardial effusion, most of which is posteriorly located at 1.7 cm. ? 14. No cardiac tamponade. tele monitor: no significant arrhythmia Fluid overload Patient has crackles bilateral base, X-ray showed pulmonary congestion Patient has been having hemodialysis in past 2 days, I have discussed case with blister packing machine tender, blister packing machine tender plans hemodialysis tomorrow 02/03 02/04 on HD today, plans remove 4 L fluid tolerates HD well 02/05: Pulmonary congestion is improving on repeated x-ray Hypoxemia Likely secondary to pulmonary congestion, fluid overload Continue O2 therapy on 2L Urinary tract infection: ?Code(s): N39.0 - Urinary tract infection, site not specified ?Status:?Acute ?Assessment and Plan: 01/31/2024: UA showing 3+ urine protein, 2+ urine blood, 3+ leukocytes 21-50, urine RBCs, greater than 100 urine WBCs, 4+ urine bacteria Urine culture obtained and: Klebsiella pneumoniae, stokes sensitivity Blood cultures ordered received Rocephin Patient has history incontinence change to augmentin po till 02/06 End-stage renal disease on hemodialysis: ?Code(s): N18.6 - End stage renal disease; Z99.2 - Dependence on renal dialysis ?Status:?Acute ?Assessment and Plan: 01/31/2024: Creatinine 5.20 this morning Nephrology consulted for HD HD arranged by blister packing machine tender fluid overloaded (4) Insulin dependent type 2 diabetes mellitus: ?Code(s): E11.9 - Type 2 diabetes mellitus without complications; Z79.
--- NOTE | 2024-02-06 09:34 | P.PNNP_ITS ---
Progress Note: A&P Assessment and Plan (1) End stage renal disease: Code(s): N18.6 - End stage renal disease Status: Chronic Assessment and Plan: * Patient had a dry ultrafiltration last week and 4 more L were removed yesterday. Fluid situation looks stable. * Volume status looks better overall * Continue fluid removal as tolerated * Fluid restrict. * Potassium and bicarbonate are doing OK * Patient is still using oxygen however * Chest x-ray from today shows resolving airspace disease the some fluid still present on the right side. * Dialysis to be planned for tomorrow. (2) Syncope: Code(s): R55 - Syncope and collapse Status: Acute Assessment and Plan: * as noted by EMS report in route to the hospital * evaluation to date noted: * Head CT was negative for any acute intracranial process * carotid dopplers showed 50-69% stenosis in the right internal carotid artery less than 50% stenosis in the left internal carotid artery. * Patient is not have a drop in her blood pressure on standing. * Management and evaluation per hospitalists. (3) Altered mental status: Qualifiers: Altered mental status type: unspecified Qualified Code(s): R41.82 - Altered mental status, unspecified Code(s): R41.82 - Altered mental status, unspecified Status: Acute Assessment and Plan: * She is at baseline mental status currently. (4) Acute UTI: Code(s): N39.0 - Urinary tract infection, site not specified Status: Acute Assessment and Plan: * suggestive by admission UA * Klebsiella on culture * on ceftriaxone earlier, Augmentin now po (5) Hypertension: Code(s): I10 - Essential (primary) hypertension Status: Chronic Assessment and Plan: * elevated on admission * Blood pressure is still running in the 160-180 range even after fluid removal. * She is on amlodipine 10, carvedilol 25 twice a day, and irbesartan is just started yesterday (6) Anemia: Code(s): D64.9 - Anemia, unspecified Status: Acute Assessment and Plan: * due to ESRD * H/H: monitor * Epogen with HD * follow trend of H/H (7) Insulin dependent type 2 diabetes mellitus: Code(s): E11.9 - Type 2 diabetes mellitus without complications; Z79.4 - exterminator helper (current) use of insulin Status: Chronic Assessment and Plan: * follow accu-cheks * glycemic control per hospitalists Subjective Date/time seen: 02/06/24 09:34 Interval history: Follow up ESRD Admitted 01/30/24 with nausea, dizziness, syncope. Echo: EF 55-60%, has diastolic heart failure. Carotid Doppler: 50-69% stenosis in the right internal carotid artery less than 50% stenosis in the left internal carotid artery. CT head- negative AMS due to UTI : antibiotics Seen and examined Feels OK Breathing is about the same. Still on oxygen. Swelling confined to the right arm which is the site of the AV shunt Did not wake up short of breath at night Exam Const: Other: WD, WN, VVS per chart, seen and examined in her room, still using oxygen, comfortable with breathing, skin dry, JVD is hard to see, RRR, no gallop, no rub, equal breath sounds, few basilar crackles, soft non tender abdomen, no lower extremity edema, alert and oriented x 3, no tremors. Av shunt right upper arm patent, edema present in the right upper extremity Objective Data Vital Signs Vital Signs:
--- NOTE | 2024-02-06 09:34 | PM.PNNEP ---
Progress Note: A&P Assessment and Plan (1) End stage renal disease: Code(s): N18.6 - End stage renal disease Status: Chronic Assessment and Plan: Patient had a dry ultrafiltration last week and 4 more L were removed yesterday. Fluid situation looks stable. Volume status looks better overall Continue fluid removal as tolerated Fluid restrict. Potassium and bicarbonate are doing OK Patient is still using oxygen however Chest x-ray from today shows resolving airspace disease the some fluid still present on the right side. Dialysis to be planned for tomorrow. (2) Syncope: Code(s): R55 - Syncope and collapse Status: Acute Assessment and Plan: as noted by EMS report in route to the hospital evaluation to date noted: Head CT was negative for any acute intracranial process carotid dopplers showed 50-69% stenosis in the right internal carotid artery less than 50% stenosis in the left internal carotid artery. Patient is not have a drop in her blood pressure on standing. Management and evaluation per hospitalists. (3) Altered mental status: Qualifiers: Altered mental status type: unspecified Qualified Code(s): R41.82 - Altered mental status, unspecified Code(s): R41.82 - Altered mental status, unspecified Status: Acute Assessment and Plan: She is at baseline mental status currently. (4) Acute UTI: Code(s): N39.0 - Urinary tract infection, site not specified Status: Acute Assessment and Plan: suggestive by admission UA Klebsiella on culture on ceftriaxone earlier, Augmentin now po (5) Hypertension: Code(s): I10 - Essential (primary) hypertension Status: Chronic Assessment and Plan: elevated on admission Blood pressure is still running in the 160-180 range even after fluid removal. She is on amlodipine 10, carvedilol 25 twice a day, and irbesartan is just started yesterday (6) Anemia: Code(s): D64.9 - Anemia, unspecified Status: Acute Assessment and Plan: due to ESRD H/H: monitor Epogen with HD follow trend of H/H (7) Insulin dependent type 2 diabetes mellitus: Code(s): E11.9 - Type 2 diabetes mellitus without complications; Z79.4 - [facility] (current) use of insulin Status: Chronic Assessment and Plan: follow accu-cheks glycemic control per hospitalists Subjective Date/time seen: 04/02/24 09:34 Interval history: Follow up ESRD Admitted 01/30/24 with nausea, dizziness, syncope. Echo: EF 55-60%, has diastolic heart failure. Carotid Doppler: 50-69% stenosis in the right internal carotid artery less than 50% stenosis in the left internal carotid artery. CT head- negative AMS due to UTI : antibiotics Seen and examined Feels OK Breathing is about the same. Still on oxygen. Swelling confined to the right arm which is the site of the AV shunt Did not wake up short of breath at night Exam Const: Other: WD, WN, VVS per chart, seen and examined in her room, still using oxygen, comfortable with breathing, skin dry, JVD is hard to see, RRR, no gallop, no rub, equal breath sounds, few basilar crackles, soft non tender abdomen, no lower extremity edema, alert and oriented x 3, no tremors. Av shunt right upper arm patent, edema present in the right upper extremity Objective Data Vital Signs Vital Signs: Vital Signs - 24 hr 02/05/24 10:22 02/05/24 10:22 02/05/24 17:23 Temperature 37.0 C Pulse Rate 68 Respiratory Rate 18 Blood Pressure 166/71 H Pulse Oximetry 100 99 Oxygen Delivery Room Air Oxygen Flow Rate 0 Fraction of Inspired Oxygen 0 02/05/24 18:18 02/05/24 10:32 02/05/24 10:45 Temperature Pulse Rate 65 64 Respiratory Rate Blood Pressure 157/73 H 163/74 H Pulse Oximetry 99 Oxygen Delivery Oxygen Flow Rate Fraction of Inspired Oxygen 02/05/24 11:00 02/05/24 11:
[2024-02-06] MEDS: carvediloL 25 MG TABLET PO ×2 (10:31→22:01)
[2024-02-06] MEDS: HEPARIN SODIUM 5,000 UNITS/ML VIAL 5000 UNITS SUB-Q ×2 (10:31→22:05)
[2024-02-06] MEDS: amLODIPine BESYLATE 5 MG TABLET 10 MG PO (10:31)
[2024-02-06] MEDS: IRBESARTAN 150 MG TABLET PO (10:31)
[2024-02-06] MEDS: AMOXICILLIN/CLAVULANATE K 500-125 MG TAB 1 TABLET PO ×2 (10:31→17:21)
[2024-02-06] MEDS: CLOPIDOGREL BISULFATE 75 MG TABLET PO (10:33)
[2024-02-06] MEDS: MONTELUKAST SODIUM 10 MG TABLET PO (10:33)
[2024-02-06 11:14] LABS: Glucose Point of Care 202 mg/dl (65-105)
[2024-02-06 11:22] LABS: Basophils Absolute Auto 0.1 K/mm3 (0.0-0.1); Basophils Percent Auto 1.2 % (0.2-1.2); Eosinophils Absolute Auto 0.3 K/mm3 (0-0.3); Eosinophils Percent Auto 5.1 % (0-4.4); Hematocrit 34.4 % (37.0-47.0); Hemoglobin 10.9 g/dL (12.0-15.0); Immature Granulocyte Absolute 0.02 K/mm3 (0.00-0.031); Immature Granulocyte Percent A 0.3 % (0-0.5); Lymphocytes Absolute Auto 1.15 K/mm3 (0.9-3.2); Lymphocytes Percent Auto 19.7 % (18.3-44.2); Mean Corpuscular HGB Conc 31.7 g/dl (32-36); Mean Corpuscular Hemoglobin 27.7 pg (26-34); Mean Corpuscular Volume 87.3 fl (80-100); Monocytes Absolute Auto 0.9 K/mm3 (0.1-0.6); Monocytes Percent Auto 15.1 % (2.6-8.5); Neutrophils Absolute Auto 3.4 K/mm3 (1.3-6.7); Neutrophils Percent Auto 58.6 % (45.5-73.1); Platelet Count Result 218 k/mm3 (150-375); Red Blood Count 3.94 M/mm3 (4.2-5.4); Red Cell Distribution Width 20.4 % (11.5-14.5); White Blood Count 5.8 K/mm3 (4.5-10.0)
[2024-02-06 11:42] LABS: Anion Gap 6 mmol/L (4-12); Blood Urea Nitrogen 19 mg/dL (7-17); Calcium 9.8 mg/dL (8.4-10.2); Carbon Dioxide 32 mmol/L (22-30); Chloride 96 mmol/L (98-107); Estimated CRCL calculation 10 ml/min; Estimated Glomerular Filt Rate 9; Glucose 213 mg/dL (65-110); Potassium 3.9 mmol/L (3.4-5.0); Sodium 134 mmol/L (137-145)
[2024-02-06] MEDS: INSULIN ASPART (*BKC) 100 UNITS/ML SUB-Q (11:59)
[2024-02-06 16:17] LABS: Glucose Point of Care 115 mg/dl (65-105)
[2024-02-06] MEDS: ATORVASTATIN 20 MG TABLET PO (22:04)
[2024-02-07] VITALS (25 sets, daily range): BP systolic 105–176; BP diastolic 37–70; PULSE 49–75; RESP 16–18; TEMP 36–36.9; O2SAT 90–100
[2024-02-07 00:17] LABS: Glucose Point of Care 147 mg/dl (65-105)
--- NOTE | 2024-02-07 05:34 | PC.NURSE ---
This RN preceptor has reviewed and agrees with student nurse Litzy Etienne assessment and charting for this shift.
[2024-02-07 06:53] LABS: Basophils Absolute Auto 0.1 K/mm3 (0.0-0.1); Basophils Percent Auto 1.2 % (0.2-1.2); Eosinophils Absolute Auto 0.4 K/mm3 (0-0.3); Eosinophils Percent Auto 7.1 % (0-4.4); Hematocrit 30.9 % (37.0-47.0); Hemoglobin 9.6 g/dL (12.0-15.0); Immature Granulocyte Absolute 0.01 K/mm3 (0.00-0.031); Immature Granulocyte Percent A 0.2 % (0-0.5); Lymphocytes Absolute Auto 1.22 K/mm3 (0.9-3.2); Lymphocytes Percent Auto 20.7 % (18.3-44.2); Mean Corpuscular HGB Conc 31.1 g/dl (32-36); Mean Corpuscular Hemoglobin 27.2 pg (26-34); Mean Corpuscular Volume 87.5 fl (80-100); Mean Platelet Volume 10.1 fl (7.4-10.4); Monocytes Absolute Auto 0.9 K/mm3 (0.1-0.6); Monocytes Percent Auto 15.9 % (2.6-8.5); Neutrophils Absolute Auto 3.2 K/mm3 (1.3-6.7); Neutrophils Percent Auto 54.9 % (45.5-73.1); Platelet Count Result 208 k/mm3 (150-375); Red Blood Count 3.53 M/mm3 (4.2-5.4); Red Cell Distribution Width 20.2 % (11.5-14.5); White Blood Count 5.9 K/mm3 (4.5-10.0)
[2024-02-07 06:54] LABS: Alanine Aminotransferase 11 U/L (6-35); Albumin Level 3.1 g/dL (3.5-5.1); Alkaline Phosphatase 80 U/L (38-126); Anion Gap 3 mmol/L (4-12); Aspartate Amino Transferase 22 U/L (14-36); Bilirubin,Total 1.1 mg/dL (0.2-1.3); Blood Urea Nitrogen 25 mg/dL (7-17); Calcium 9.7 mg/dL (8.4-10.2); Carbon Dioxide 32 mmol/L (22-30); Chloride 98 mmol/L (98-107); Estimated CRCL calculation 8 ml/min; Estimated Glomerular Filt Rate 7; Glucose 158 mg/dL (65-110); Sodium 133 mmol/L (137-145)
[2024-02-07 07:42] LABS: Glucose Point of Care 146 mg/dl (65-105)
--- NOTE | 2024-02-07 08:11 | PM.IMPN ---
Progress Note: A&P Assessment and Plan (1) End stage renal disease: Code(s): N18.6 - End stage renal disease Status: Chronic (2) Acute UTI: Code(s): N39.0 - Urinary tract infection, site not specified Status: Acute (3) Hyperlipidemia: Code(s): E78.5 - Hyperlipidemia, unspecified Status: Chronic (4) End-stage renal disease on hemodialysis: Code(s): N18.6 - End stage renal disease; Z99.2 - Dependence on renal dialysis Status: Acute (5) Insulin dependent type 2 diabetes mellitus: Code(s): E11.9 - Type 2 diabetes mellitus without complications; Z79.4 - retirement (current) use of insulin Status: Chronic (6) Acute respiratory failure with hypoxemia: Code(s): J96.01 - Acute respiratory failure with hypoxia Status: Acute (7) Fluid overload: Code(s): E87.70 - Fluid overload, unspecified Status: Acute (8) Hypertensive urgency: Code(s): I16.0 - Hypertensive urgency Status: Acute Plan Syncope: ?Code(s): R55 - Syncope and collapse ?Status:?Acute ?Assessment and Plan: 01/31/2024: EMS report presyncopal episodes in route to the hospital Patient was given 2 mg of Narcan without any change EN route Head CT was negative for any acute intracranial process, showed age-related changes, shown encephalomalacia consistent with 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 Continue orthostatic blood pressures Q shift ?echocardiogram 1. Complete two-dimensional, color flow and Doppler transthoracic echocardiogram is performed. ? 2. Left ventricular chamber dimension is mildly enlarged. ? 3. Left ventricular systolic function is normal, estimated at 55-60%. ? 4. There is mild concentric increased left ventricular wall thickness. ? 5. The left ventricular diastolic function is abnormal. ? 6. E/e' 25 is significantly elevated. ? 7. Left atrial chamber dimension is severely enlarged. ? 8. The mitral valve has moderately calcified annulus. ? 9. There is mild mitral valve regurgitation. ? 10. There is mild tricuspid valve regurgitation. ? 11. Mild pulmonary hypertension, estimated pulmonary arterial systolic pressure is 42 mmHg. ? 12. There is trace pulmonic regurgitation. ? 13. There is small circumferential pericardial effusion, most of which is posteriorly located at 1.7 cm. ? 14. No cardiac tamponade. tele monitor: no significant arrhythmia Fluid overload Patient has crackles bilateral base, X-ray showed pulmonary congestion Patient has been having hemodialysis in past 2 days, I have discussed case with dip tube assembler machine, dip tube assembler machine plans hemodialysis tomorrow 02/03 02/04 on HD today, plans remove 4 L fluid tolerates HD well 02/05: Pulmonary congestion is improving on repeated x-ray 02/06: HD today, remove 4L fluid Hypoxemia Likely secondary to pulmonary congestion, fluid overload Continue O2 therapy on 2L Urinary tract infection: ?Code(s): N39.0 - Urinary tract infection, site not specified ?Status:?Acute ?Assessment and Plan: 01/31/2024: UA showing 3+ urine protein, 2+ urine blood, 3+ leukocytes 21-50, urine RBCs, greater than 100 urine WBCs, 4+ urine bacteria Urine culture obtained and: Klebsiella pneumoniae, stokes sensitivity Blood cultures ordered received Rocephin Patient has history incontinence change to augmentin po till 02/06 End-stage renal disease on hemodialysis: ?Code(s): N18.6 - End stage renal disease; Z99.2 - Dependence on renal dialysis ?Status:?Acute ?Assessment and Plan: 01/31/2024: Creatinine 5.20 this morning Nephrology consulted for HD HD arranged by dip tube assembler machine fluid overloaded now resolved (4) Insulin dependent type 2 diabetes mellitus: ?Code(s): E11.9 - Type 2 diabetes mellitus without c
--- NOTE | 2024-02-07 08:12 | PM.DS ---
DS: Admitting Diagnosis Discharge Date 02/06 Admitting Diagnosis (1) End stage renal disease: ?Code(s): N18.6 - End stage renal disease ?Status:?Chronic (2) Acute UTI: ?Code(s): N39.0 - Urinary tract infection, site not specified ?Status:?Acute (3) Hyperlipidemia: ?Code(s): E78.5 - Hyperlipidemia, unspecified ?Status:?Chronic (4) End-stage renal disease on hemodialysis: ?Code(s): N18.6 - End stage renal disease; Z99.2 - Dependence on renal dialysis ?Status:?Acute (5) Insulin dependent type 2 diabetes mellitus: ?Code(s): E11.9 - Type 2 diabetes mellitus without complications; Z79.4 - terminal computer operator (current) use of insulin ?Status:?Chronic (6) Acute respiratory failure with hypoxemia: ?Code(s): J96.01 - Acute respiratory failure with hypoxia ?Status:?Acute (7) Fluid overload: ?Code(s): E87.70 - Fluid overload, unspecified ?Status:?Acute (8) Hypertensive urgency: ?Code(s): I16.0 - Hypertensive urgency ?Status:?Acute DS: Discharge Diagnosis Discharge Diagnosis (1) End stage renal disease: Code(s): N18.6 - End stage renal disease Status: Chronic (2) Acute UTI: Code(s): N39.0 - Urinary tract infection, site not specified Status: Acute (3) Hyperlipidemia: Code(s): E78.5 - Hyperlipidemia, unspecified Status: Chronic (4) End-stage renal disease on hemodialysis: Code(s): N18.6 - End stage renal disease; Z99.2 - Dependence on renal dialysis Status: Acute (5) Insulin dependent type 2 diabetes mellitus: Code(s): E11.9 - Type 2 diabetes mellitus without complications; Z79.4 - terminal computer operator (current) use of insulin Status: Chronic (6) Acute respiratory failure with hypoxemia: Code(s): J96.01 - Acute respiratory failure with hypoxia Status: Acute (7) Fluid overload: Code(s): E87.70 - Fluid overload, unspecified Status: Acute (8) Hypertensive urgency: Code(s): I16.0 - Hypertensive urgency Status: Acute DS: Summary Hospital Course Hospital Course: Per H&P, This is a pleasant 68-year-old female with history of stroke, end-stage renal disease on hemodialysis, hypertension, hyperlipidemia, and insulin-dependent diabetes who presented to the emergency department via EMS for home for evaluation of dizziness, nausea, and syncope. EMS was summoned via the patient's Life Alert at which time she reported dizziness and nausea. EMS reports that she was alert and oriented x4 on their arrival but became increasingly lethargic en route to the hospital and reportedly had multiple yet brief syncopal episodes during transport. Her pupils were pinpoint but reactive in the administered 2 mg of Narcan without change. She was afebrile on arrival to the ED with stable vitals. Blood pressures have ranged between the 150s to 180s systolic. Labs were significant for WBC count of 11.0, hemoglobin 10.8, sodium 134, potassium 3.8, creatinine 4.60, glucose 183. Urine was positive for 3+ leukocyte esterase, >100 WBC, and 4+ bacteria. Brain CT showed chronic findings without acute intracranial process. She is being admitted in this setting for further workup. At the time my evaluation she is resting comfortably. She urinates once or twice a day and does endorse dysuria. She also reports a productive cough, sweats, and nausea but no vomiting. She denies fever, sore throat, chest and pleuritic pain, sensations of racing heart, hematemesis, diarrhea, melena, and hematochezia. The following med issues have been addressed during hospitalization Syncope: ?Code(s): R55 - Syncope and collapse ?Status:?Acute ?Assessment and Plan: 01/31/2024: EMS report presyncopal episodes in route to the hospital Patient was given 2 mg of Narcan without any change EN route Head CT was negative for any acute intracranial process, showed age-related changes, shown encephalomalacia consistent with
[2024-02-07] MEDS: AMOXICILLIN/CLAVULANATE K 500-125 MG TAB 1 TABLET PO (08:19)
[2024-02-07] MEDS: HEPARIN SODIUM 1,000 UNITS/ML VIAL 2000 UNITS IV PUSH (08:41)
[2024-02-07] MEDS: HEPARIN SODIUM 1,000 UNITS/ML VIAL 1500 UNITS IV PUSH ×2 (08:45→09:45)
--- NOTE | 2024-02-07 11:18 | PCPTNOTE ---
The patient treatment was not able to be completed due to patient out of room for dialysis. Will plan to continue treatment per plan of care.
[2024-02-07] MEDS: EPOETIN ALFA-EPBX 4,000 UNITS/ML VIAL 4000 UNITS IV PUSH (11:31)
[2024-02-07 11:42] LABS: Glucose Point of Care 163 mg/dl (65-105)
--- NOTE | 2024-02-07 12:00 | PCOTNOTE ---
Patient out od the room at this time. Patient is out for dialysis.
--- NOTE | 2024-02-07 12:15 | P.PNNP_ITS ---
Progress Note: A&P Assessment and Plan (1) End stage renal disease: Code(s): N18.6 - End stage renal disease Status: Chronic Assessment and Plan: * HD today * continue Mon/Mon/Monday outpatient dialysis schedule * follow electrolytes, volume status, and clearance * push fluid removal as tolerated (2) Syncope: Code(s): R55 - Syncope and collapse Status: Acute Assessment and Plan: * as noted by EMS report in route to the hospital * evaluation to date noted: * Head CT was negative for any acute intracranial process * carotid dopplers showed 50-69% stenosis in the right internal carotid artery less than 50% stenosis in the left internal carotid artery. * continue supportive therapy (3) Altered mental status: Qualifiers: Altered mental status type: unspecified Qualified Code(s): R41.82 - Altered mental status, unspecified Code(s): R41.82 - Altered mental status, unspecified Status: Acute Assessment and Plan: * resolved * appears back to baseline (4) Acute UTI: Code(s): N39.0 - Urinary tract infection, site not specified Status: Acute Assessment and Plan: * suggestive by admission UA * Klebsiella on urine culture * on antibiotics (5) Hypertension: Code(s): I10 - Essential (primary) hypertension Status: Chronic Assessment and Plan: * elevated on admission * BP doing beter with fluid removal and medication adjustments * follow trend of hemodynamics (6) Anemia: Code(s): D64.9 - Anemia, unspecified Status: Acute Assessment and Plan: * due to ESRD * Epogen with HD * follow trend of H/H (7) Insulin dependent type 2 diabetes mellitus: Code(s): E11.9 - Type 2 diabetes mellitus without complications; Z79.4 - salvage determiner (current) use of insulin Status: Chronic Assessment and Plan: * follow accu-cheks * glycemic control per hospitalists Will continue to follow. Subjective Date/time seen: 02/07/24 12:15 Interval history: Follow-up for end stage renal disease on hemodialysis. Covering for Dr. Huntley -- tolerating hemodialysis treatment at the time of my vi sit (seen on HD at 12:05PM); no apparent distress noted; no issues/events overnight or earlier this morning; denies any shortness of breath or respiratory issues currently. Exam Narrative: General: WD/WN female in NAD Heart: normal S1 and S2; no rub Lungs: clear anteriorly, decreased at bases Abdomen: soft, nontender, nondistended, positive bowel sounds Extremities: no cyanosis or clubbing; no edema Skin: warm and dry Objective Data Vital Signs Vital Signs: Vital Signs Temp Pulse Resp BP Pulse Ox O2 Del Method O2 Flow Rate 02/07/24 12:00 50 L 136/52 L 02/07/24 11:30 49 L 124/56 L 02/07/24 11:00 50 L 132/52 L 02/07/24 08:15 100 Nasal Cannula 2 02/07/24 10:30 51 L 137/51 L 02/07/24 10:15 51 L 137/48 L 02/07/24 10:00 52 L 140/51 L 02/07/24 11:45 50 L 121/44 L 02/07/24 11:15 50 L 142/60 H 02/07/24 10:45 50 L 122/48 L 02/07/24 09:45 52 L 142/55 H 02/07/24 09:15 56 L 153/56 H 02/07/24 09:00 58 L 156/62 H 02/07/24 08:45 2
--- NOTE | 2024-02-07 12:15 | PM.PNNEP ---
Progress Note: A&P Assessment and Plan (1) End stage renal disease: Code(s): N18.6 - End stage renal disease Status: Chronic Assessment and Plan: HD today continue Mon/Mon/Monday outpatient dialysis schedule follow electrolytes, volume status, and clearance push fluid removal as tolerated (2) Syncope: Code(s): R55 - Syncope and collapse Status: Acute Assessment and Plan: as noted by EMS report in route to the hospital evaluation to date noted: Head CT was negative for any acute intracranial process carotid dopplers showed 50-69% stenosis in the right internal carotid artery less than 50% stenosis in the left internal carotid artery. continue supportive therapy (3) Altered mental status: Qualifiers: Altered mental status type: unspecified Qualified Code(s): R41.82 - Altered mental status, unspecified Code(s): R41.82 - Altered mental status, unspecified Status: Acute Assessment and Plan: resolved appears back to baseline (4) Acute UTI: Code(s): N39.0 - Urinary tract infection, site not specified Status: Acute Assessment and Plan: suggestive by admission UA Klebsiella on urine culture on antibiotics (5) Hypertension: Code(s): I10 - Essential (primary) hypertension Status: Chronic Assessment and Plan: elevated on admission BP doing beter with fluid removal and medication adjustments follow trend of hemodynamics (6) Anemia: Code(s): D64.9 - Anemia, unspecified Status: Acute Assessment and Plan: due to ESRD Epogen with HD follow trend of H/H (7) Insulin dependent type 2 diabetes mellitus: Code(s): E11.9 - Type 2 diabetes mellitus without complications; Z79.4 - prison (current) use of insulin Status: Chronic Assessment and Plan: follow accu-cheks glycemic control per hospitalists Will continue to follow. Subjective Date/time seen: 02/07/24 12:15 Interval history: Follow-up for end stage renal disease on hemodialysis. Covering for Dr. Huntley -- tolerating hemodialysis treatment at the time of my visit (seen on HD at 12:05PM); no apparent distress noted; no issues/events overnight or earlier this morning; denies any shortness of breath or respiratory issues currently. Exam Narrative: General: WD/WN female in NAD Heart: normal S1 and S2; no rub Lungs: clear anteriorly, decreased at bases Abdomen: soft, nontender, nondistended, positive bowel sounds Extremities: no cyanosis or clubbing; no edema Skin: warm and dry Objective Data Vital Signs Vital Signs: Vital Signs Temp Pulse Resp BP Pulse Ox O2 Del Method O2 Flow Rate 02/07/24 12:00 50 L 136/52 L 02/07/24 11:30 49 L 124/56 L 02/07/24 11:00 50 L 132/52 L 02/07/24 08:15 100 Nasal Cannula 2 02/07/24 10:30 51 L 137/51 L 02/07/24 10:15 51 L 137/48 L 02/07/24 10:00 52 L 140/51 L 02/07/24 11:45 50 L 121/44 L 02/07/24 11:15 50 L 142/60 H 02/07/24 10:45 50 L 122/48 L 02/07/24 09:45 52 L 142/55 H 02/07/24 09:15 56 L 153/56 H 02/07/24 09:00 58 L 156/62 H 02/07/24 08:45 2 02/07/24 09:30 55 L 143/61 H 02/07/24 08:32 98.4 F 64 16 142/65 H 100 02/07/24 08:45 60 176/70 H 02/07/24 06:00 97.9 F 57 L 18 164/47 H 99 02/06/24 21:15 97.5 F L 62 18 163/47 H 99 02/06/24 22:01 61 Intake/Output Intake/Output: Intake & Output 02/04/24 02/05/24 02/06/24 02/07/24 23:59 23:59 23:59 23:59 Intake Total 750 1190 1000 1220 Output Total 4000 0 4000 Balance 750 -2810 1000 -2780 Meds/Results Medications: Active Medications Generic Name Dose Route Start Last Admin Trade Name Freq PRN Reason Stop Dose Admin Acetaminophen 650 mg 02/07/24 08:36 Acetaminophen 325 Mg Tablet PO Q4H PRN Mil
--- NOTE | 2024-02-07 15:17 | PCRCNOTE ---
HOME O2 EVAL COMPLETE. PATIENT DOES NOT REQUIRE HOME O2 AT THIS TIME. RN NOTIFIED
[2024-02-07] MEDS: carvediloL 25 MG TABLET PO (16:15)
[2024-02-07] MEDS: MONTELUKAST SODIUM 10 MG TABLET PO (16:16)
[2024-02-07] MEDS: amLODIPine BESYLATE 5 MG TABLET 10 MG PO (16:16)
[2024-02-07] MEDS: CLOPIDOGREL BISULFATE 75 MG TABLET PO (16:16)
[2024-02-07] MEDS: IRBESARTAN 150 MG TABLET PO (16:16)
== END 2024-02-07 16:35 | disposition home health service (06) | DRG 689 ==
LOC: ANHED 14:54 → ANH3MEDSUR 15:47
PROVIDERS: Internal Medicine Nephrology; Physician Assistant; Admitting Provider Family Medicine; Emergency Provider Family Medicine; PCP Family Medicine; Visit Provider Hospitalist
DX: N39.0 Urinary tract infection, site not specified (principal); I50.33 Acute on chronic diastolic (congestive) heart failure; N18.6 End stage renal disease; I12.0 Hypertensive chronic kidney disease with stage 5 chronic kidney disease or end stage renal disease; R55 Syncope and collapse; B96.1 Klebsiella pneumoniae [K. pneumoniae] as the cause of diseases classified elsewhere; E87.79 Other fluid overload; I16.0 Hypertensive urgency; R09.02 Hypoxemia; E78.5 Hyperlipidemia, unspecified; I65.23 Occlusion and stenosis of bilateral carotid arteries; D63.1 Anemia in chronic kidney disease; E11.22 Type 2 diabetes mellitus with diabetic chronic kidney disease; E11.319 Type 2 diabetes mellitus with unspecified diabetic retinopathy without macular edema; R32 Unspecified urinary incontinence; Z86.73 Personal history of transient ischemic attack (TIA), and cerebral infarction without residual deficits; Z99.2 Dependence on renal dialysis; Z79.4 Long term (current) use of insulin
CPT/HCPCS: 36415; 36600; 70450; 71045; 74176; 80048; 80053; 80069; 81001; 82805; 82948; 83735; 84100; 84443; 84484; 85025; 85027; 85610; 85730; 86706; 87040; 87077; 87086; 87088; 87186; 87340; 93005; 93306; 93880; 94618; 96365; 97110; 97161; 97166; 97530; 97535; 99285; A9270; G0257; G0378; J0360; J0696; J1644; J1815; J2405; J7030; Q5105